=== PATIENT | male | born 1950 | race Caucasian/White ===

== ENCOUNTER 2017-03-06 05:51 | Inpatient (IN) | payer MEDICARE ==
[2017-03-06] MEDS ORDERED: ASPIRIN 81 MG CHEW PO STA (06:08)
[2017-03-06] MEDS ORDERED: NITROGLYCERIN SL TABS 0.4 MG TAB SUBLINGUAL STA ×3 (06:08)
--- NOTE | 2017-03-06 06:11 | ED ---
General Adult HPI - General Chief complaint: Chest Pain Stated complaint: Chest Pain Time Seen by Provider: 03/06/17 06:04 Source: patient, RN notes reviewed Mode of arrival: wheelchair Limitations: no limitations - History of Present Illness Initial comments: Patient is a pleasant 67-year-old male presenting to the emergency department complaining of chest discomfort. Onset of symptoms was around 7:00 last night. Symptoms have worsened since that time. Discomfort did start more in the lower chest/upper abdomen however now is in the left chest behind the breast. No associated dyspnea, nausea, or diaphoresis. No history of similar symptoms previously. Discomfort is currently 8/10. No radiation. Discomfort feels like pressure. - Related Data Home Medications Medication Instructions Recorded Confirmed DULoxetine HCL [Cymbalta] 60 mg PO DAILY 03/06/17 03/06/17 Empagliflozin [Jardiance] 25 mg PO 03/06/17 HYDROcodone/APAP 10-325MG [[place] 1 tab PO Q6H PRN 03/06/17 03/06/17 10-325] Multivit-Min/FA/Lycopen/Lutein 1 each PO 03/06/17 [Centrum Silver Men Tablet] Pravastatin Sodium [Pravachol] 40 mg PO DAILY 03/06/17 03/06/17 glipiZIDE [Glucotrol XL] 10 mg PO 03/06/17 metFORMIN HCL [Glucophage] 500 mg PO BID 03/06/17 03/06/17 Allergies Allergy/AdvReac Type Severity Reaction Status Date / Time No Known Allergies Allergy Verified 03/06/17 05:57 Review of Systems ROS Statement: Those systems with pertinent positive or pertinent negative responses have been documented in the HPI. ROS Other: All systems not noted in ROS Statement are negative. Constitutional: Denies: fever Eyes: Denies: eye pain ENT: Denies: ear pain Respiratory: Denies: cough Cardiovascular: Reports: chest pain Endocrine: Denies: fatigue Gastrointestinal: Denies: abdominal pain Genitourinary: Denies: dysuria Musculoskeletal: Denies: back pain Skin: Denies: rash Neurological: Denies: weakness Past Medical History Past Medical History: Diabetes Mellitus History of Any Multi-Drug Resistant Organisms: None Reported Past Surgical History: Hernia Repair Past Psychological History: No Psychological Hx Reported Smoking Status: Never smoker Past Alcohol Use History: Rare Past Drug Use History: None Reported General Exam Limitations: no limitations General appearance: alert, in no apparent distress Head exam: Present: atraumatic Eye exam: Present: normal appearance, PERRL ENT exam: Present: normal oropharynx Neck exam: Present: normal inspection Respiratory exam: Present: normal lung sounds bilaterally, chest wall tenderness (There is mild tenderness to palpation of the anterior chest wall) Cardiovascular Exam: Present: regular rate, normal rhythm Expanded Peripheral pulses: 2+: Radial (R), Radial (L), Dorsalis Pedis (R), Dorsalis Pedis (L) GI/Abdominal exam: Present: soft. Absent: tenderness Extremities exam: Present: normal inspection. Absent: pedal edema, calf tenderness Neurological exam: Present: alert Psychiatric exam: Present: normal affect, normal mood Skin exam: Present: normal color Course Vital Signs 03/06/17 03/06/17 03/06/17 05:54 06:20 06:29 Temperature 97.8 F Pulse Rate 68 98 97 Respiratory 20 24 22 Rate Blood Pressure 172/80 134/82 112/74 O2 Sat by Pulse 100 98 97 Oximetry 03/06/17 03/06/17 03/06/17 06:35 06:39 06:44 Temperature Pulse Rate 95 103 H 99 Respiratory 22 22 22 Rate Blood Pressure 141/85 153/84 147/83 O2 Sat by Pulse 96 97 97 Oximetry - Reevaluation(s) Reevaluation #1: 03/06/17 06:11 Repeat EKG shows normal sinus rhythm 70. AK 138. QRS 72. QT 404. QTC 436. Left axis. Inferior Q waves with ST elevation. ST depression in lead aVL. 03/06/17 06:13 Cardiology has been paged and STEMI alert was called. 03/06/17 06:17 Case was discussed with Dr. Laguna 03/06/17 06:25 Case was discussed with Dr. Suarez, who will admit his patient. 03/06/17 06:26 Patient reexamined and still not feeling well. Patient will be provided fluid bolus and right-sided EKG ordered. Patient and family were updated on results and plan for cath. 03/06/17 06:32 Right-sided EKG shows normal sinus rhythm 98. AK 166. QRS 82. QT 362. QTC 462. Normal axis. Inferior Q waves with ST elevation. ST depression in aVL and lead 1. Septal Q waves. There is ST elevation in lead V4 concerning for posterior infarct. Nursing instructed to not provide further nitroglycerin at this time. 03/06/17 06:47 Dr. Laguna did evaluate the patient in the emergency department. Patient has gone to the [facility]. EKG Findings - EKG Comments: EKG Findings:: Normal sinus rhythm at 72. AK 174. QRS 80. QT 380. QTC 416. Normal axis. Inferior Q wave with some ST elevation. ST depression in lead aVL. Medical Decision Making - Lab Data Result diagrams: 03/06/17 06:14 Lab Results 03/06/17 Range/Units 06:14 WBC 14.0 H (3.8-10.6) k/uL RBC 5.45 (4.30-5.90) m/uL Hgb 16.5 (13.0-17.5) gm/dL Hct 48.3 (39.0-53.0) % MCV 88.6 (80.0-100.0) fL MCH 30.3 (25.0-35.0) pg MCHC 34.2 (31.0-37.0) g/dL RDW 14.1 (11.5-15.5) % Plt Count 239 (150-450) k/uL - Radiology Data Interpreted by me: Chest x-ray interpreted by myself shows no acute process. Critical Care Time Critical Care Time: Yes Total Critical Care Time: 32 Disposition Clinical Impression: ST elevation myocardial infarction (STEMI) Disposition: ADMITTED IP TO THIS [facility] Condition: Serious Decision Time: 06:48
[2017-03-06] MEDS ORDERED: HEPARIN SODIUM,PORCINE 5,000 UNIT/ML 1 ML VIAL IV PRN (06:20)
[2017-03-06] MEDS ORDERED: HEPARIN SODIUM,PORCINE 5,000 UNIT/ML 1 ML VIAL IV ONE (06:20)
[2017-03-06] MEDS: HEPARIN SODIUM,PORCINE/D5W PMX 25,000 UNIT in DEXTROSE/WATER 1 500ML.BAG IV SCH ×2 (06:24→23:03)
[2017-03-06] MEDS ORDERED: SODIUM CHLORIDE 0.9% 500 ML IV STA ×2 (06:27→06:33)
[2017-03-06] MEDS ORDERED: ATORVASTATIN 80 MG TAB PO STA (06:27)
[2017-03-06 06:33] LABS: CHCM 36.3; HCT 48.3 % (39.0-53.0); HDW 2.82; HGB 16.5 gm/dL (13.0-17.5); MCH 30.3 pg (25.0-35.0); MCHC 34.2 g/dL (31.0-37.0); MCV 88.6 fL (80.0-100.0); Mean Platelet Volume 7.9; RBC 5.45 m/uL (4.30-5.90); RDW 14.1 % (11.5-15.5)
--- NOTE | 2017-03-06 06:43 | XR ---
EXAM: XR Chest, 1 View CLINICAL HISTORY: Reason: chest pain TECHNIQUE: Frontal view of the chest. COMPARISON: No relevant prior studies available. FINDINGS: Lungs: Unremarkable. No consolidation. Pleural space: Unremarkable. No pneumothorax. Heart: Unremarkable. No cardiomegaly. Mediastinum: Unremarkable. Bones/joints: Unremarkable. IMPRESSION: Normal chest x-ray.
[2017-03-06 06:47] LABS: ALT 37 U/L (21-72); AST 29 U/L (17-59); Alkaline Phosphatase 80 U/L (38-126); Anion Gap 16 mmol/L; Blood Urea Nitrogen 15 mg/dL (9-20); Calcium 9.8 mg/dL (8.4-10.2); Carbon Dioxide 22 mmol/L (22-30); Chloride 100 mmol/L (98-107); Glucose 207 mg/dL (74-99); Non-African American GFR(MDRD) >60 (>60 ml/min/1.73 sqM); Potassium 4.1 mmol/L (3.5-5.1); Sodium 138 mmol/L (137-145); Total Bilirubin 0.8 mg/dL (0.2-1.3); Total Protein 8.2 g/dL (6.3-8.2)
[2017-03-06 06:49] LABS: Partial Thromboplastin Time 24.6 sec (22.0-30.0); Prothrombin Time 10.4 sec (9.0-12.0)
[2017-03-06] MEDS ORDERED: IV FLUID CONTINUATION 950 ML IV ONE (06:50)
[2017-03-06] MEDS ORDERED: SODIUM CHLORIDE 0.9% 500 ML IV ONE (06:50)
[2017-03-06] MEDS ORDERED: LIDOCAINE 2% INJ 20 MG/ML (20 ML MDV) ONE (07:01)
[2017-03-06] MEDS ORDERED: fentaNYL (PF) 50 MCG/ML 2 ML AMP ONE (07:01)
[2017-03-06] MEDS ORDERED: VERAPAMIL 2.5 MG/ML 2 ML AMP ONE (07:01)
[2017-03-06] MEDS ORDERED: diphenhydrAMINE 50 MG/ML 1 ML VIAL ONE (07:01)
[2017-03-06] MEDS ORDERED: LIDOCAINE 2% INJ 20 MG/ML SQ ONE ×2 (07:10→07:13)
[2017-03-06] MEDS ORDERED: diphenhydrAMINE 50 MG/ML 1 ML VIAL IVP ONE (07:10)
[2017-03-06] MEDS ORDERED: fentaNYL (PF) 50 MCG/ML 2 ML AMP IV ONE (07:10)
[2017-03-06] MEDS ORDERED: VERAPAMIL SYRINGE (5 MG/10 ML) INTRAARTER ONE (07:11)
[2017-03-06 07:15] LABS: Creatine Kinase MB 3.6 ng/mL (0.0-2.4); Troponin I 0.191 ng/mL (0.000-0.034)
[2017-03-06] MEDS ORDERED: BIVALIRUDIN BOLUS 250 MG/50 ML IV ONE (07:17)
[2017-03-06] MEDS ORDERED: PRASUGREL 10 MG TAB ONE (07:18)
[2017-03-06] MEDS ORDERED: BIVALIRUDIN 250 MG in SODIUM CHLORIDE 0.9% 50 ML IV ONE (07:18)
[2017-03-06] MEDS ORDERED: PRASUGREL 10 MG TAB PO ONE (07:21)
[2017-03-06] MEDS ORDERED: NITROGLYCERIN 1000MCG/10ML SYRINGE INTRACORON ONE (07:23)
[2017-03-06] MEDS ORDERED: IOHEXOL 350 MG/ML 125ML BOTTLE INJ ONE (07:39)
[2017-03-06] MEDS ORDERED: ATROPINE SULFATE 0.1 MG/ML 10ML SYRINGE IV PRN (08:02)
[2017-03-06] MEDS ORDERED: ZOLPIDEM 5 MG TAB PO PRN (08:02)
[2017-03-06] MEDS ORDERED: NITROGLYCERIN SL TABS 0.4 MG TAB SUBLINGUAL PRN (08:02)
[2017-03-06] MEDS ORDERED: RX INFO: IV CONTRAST WAS GIVEN 1 EACH MISC MISCELLANE PRN (08:02)
[2017-03-06] MEDS ORDERED: MAG HYDROX/AL HYDROX/SIMETH 30 ML CUP PO PRN (08:02)
[2017-03-06 08:14] LABS: Glucose,Whole Blood 192 mg/dL (75-99)
[2017-03-06] MEDS ORDERED: SODIUM CHLORIDE 0.9% 1,000 ML IV SCH (08:15)
[2017-03-06 09:42] VITALS: BMI 28.2
[2017-03-06] MEDS ORDERED: glipiZIDE 10 MG TAB PO SCH (10:15)
[2017-03-06] MEDS: DULoxetine HCL 60 MG CAPSULE.DR PO SCH (10:16)
[2017-03-06] MEDS: LISINOPRIL 5 MG TAB PO SCH (10:16)
[2017-03-06] MEDS: METOPROLOL TARTRATE 25 MG TAB PO SCH ×2 (10:16→21:41)
[2017-03-06 12:40] LABS: Glucose,Whole Blood 117 mg/dL (75-99)
[2017-03-06] MEDS: INSULIN LISPRO (humaLOG) 300 UNIT/3 ML VIAL SQ SCH ×4 (13:42→23:45)
[2017-03-06 14:17] LABS: Hemoglobin A1C 6.7 % (4.2-6.1)
--- NOTE | 2017-03-06 14:17 | ECHOF ---
Referral Reason:mi MEASUREMENTS -------- HEIGHT: 175.3 cm WEIGHT: 90.7 kg BP: 147/83 IVSd: 1.4 cm (0.6 - 1.1) LVIDd: 3.2 cm (3.9 - 5.3) LVPWd: 1.1 cm (0.6 - 1.1) IVSs: 1.5 cm LVIDs: 1.7 cm LVPWs: 1.5 cm Ao Diam: 3.5 cm (2.0 - 3.7) AV Cusp: 2.0 cm (1.5 - 2.6) LA Diam: 3.1 cm (2.7 - 3.8) MV EXCURSION: 12.148 mm (> 18.000) MV EF SLOPE: 93 mm/s (70 - 150) EPSS: 0.6 cm MV E [place]: 0.86 m/s MV DecT: 209 ms MV A [place]: 0.71 m/s MV E/A Ratio: 1.21 RAP: 5.00 mmHg RVSP: 8.53 mmHg FINDINGS -------- Sinus rhythm. This was a technically difficult study with suboptimal views. There is mild concentric left ventricular hypertrophy. Overall left ventricular systolic function is mild-moderately impaired with, an EF between 40 - 45 %. Inferior Hypokinesis The right ventricle is normal in size and function. The left atrium is normal in size. The right atrium is normal in size. 1.5mg of Definity was utilized for enhancement of images Aortic valve is trileaflet and is mildly thickened. The mitral valve leaflets are mildly thickened. There is trace mitral regurgitation. Trace tricuspid regurgitation present. The right ventricular systolic pressure, as measured by Doppler, is 8.53mmHg. Pulmonic valve appears structurally normal. The aortic root size is normal. The pericardium is normal. CONCLUSIONS -------- 1. Sinus rhythm. 2. Aortic valve is trileaflet and is mildly thickened. 3. The mitral valve leaflets are mildly thickened. 4. There is trace mitral regurgitation. 5. Trace tricuspid regurgitation present. 6. The right ventricular systolic pressure, as measured by Doppler, is 8.53mmHg. 7. Pulmonic valve appears structurally normal. 8. The aortic root size is normal. 9. The pericardium is normal. 10. This was a technically difficult study with suboptimal views. 11. There is mild concentric left ventricular hypertrophy. 12. Overall left ventricular systolic function is mild-moderately impaired with, an EF between 40 - 45 %. 13. Inferior Hypokinesis 14. The right ventricle is normal in size and function. 15. The left atrium is normal in size. 16. The right atrium is normal in size. 17. 1.5mg of Definity was utilized for enhancement of images CIRCULATING PROCESS INSPECTOR: Elizabeth Isabel RDCS
--- NOTE | 2017-03-06 15:12 | CONS ---
Mr. Maravilla is a 67-year-old male with history of diabetes mellitus, who presented with symptoms of chest discomfort. The discomfort started yesterday at around 7:00 p.m. and persisted. He felt that his discomfort was initially GI in origin but because it persisted he came into the emergency room and subsequently his EKG showed evidence of inferior wall myocardial infarction. Patient denies any prior similar symptoms. He is usually average in his exercise tolerance and has no exertional chest pain or dyspnea on exertion. He denies any dizziness, palpitations, or syncope. He denies any PND, orthopnea or peripheral edema. He has no prior cardiac history. His coronary risk factors are positive for diabetes and hyperlipidemia. He is nonhypertensive and nonsmoker. His medications include pravastatin 40 mg daily, glipizide 10 mg daily, Jiardiance 25 mg daily, metformin 500 mg twice a day, duloxetine, Centrum Silver and [place] on a p.r.n. basis. REVIEW OF SYMPTOMS: RESPIRATORY: He has no recent history of documented asthma or emphysema. GI SYSTEM: No GI bleed. No peptic ulcer disease. SYSTEM: No dysuria or hematuria. NERVOUS SYSTEM: No history of stroke or seizure. PHYSICAL EXAMINATION: He is a 67-year-old male alert, oriented in no apparent distress. Heart rate in the 90s, blood pressure 120/70. HEAD: Normocephalic. EYES: Sclerae anicteric. NECK: Good upstroke. No bruit, no jugular venous distention. CHEST: Clear to auscultation. HEART: Regular rate and rhythm. S1, S2. No S3 with systolic murmur at the bases. No diastolic murmur, no rub. ABDOMEN: Soft, nontender. Positive bowel sounds. No organomegaly. EXTREMITIES: No edema. Intact pulses. EKG reveals sinus mechanism with normal axis, normal intervals with ST elevation involving the II, III and aVL with QRS pattern and ST depression in the I and aVL. IMPRESSION: 1. Acute inferior myocardial infarction. Patients pain started about 12 hours ago. 2. History of diabetes. 3. Hyperlipidemia. RECOMMENDATIONS: I recommend with proceeding with emergent cardiac catheterization. The rationale behind the procedure as well as the risks and complications were discussed with the patient who is in full understanding and agreement. Thank you for this consult. Will follow with you. MILLI
--- NOTE | 2017-03-06 17:35 | P.HPIM ---
History of Present Illness H&P Date: 03/06/17 Chief Complaint: chest pain This is a 67 y/o male well known to the practice who began having chest pain about 6pm, day before admission. It started with abdominal pain and slowly increased in severity and moved up his chest. When he got to his heart level, he came emergency room. He was found to have a STEMI. Cardiology had seen him and Dr. Laguna took him for cardiac catheterization with stenting. He was diagnosed with acute inferior myocardial infarction. Patient is now resting comfortably in the intensive care unit. He is pain- free. He denies any shortness of breath, nausea, vomiting, abdominal pain, diarrhea. Review of Systems All systems: negative Past Medical History Past Medical History: Diabetes Mellitus History of Any Multi-Drug Resistant Organisms: None Reported Past Surgical History: Hernia Repair Past Anesthesia/Blood Transfusion Reactions: No Reported Reaction Past Psychological History: No Psychological Hx Reported Smoking Status: Never smoker Past Alcohol Use History: Rare Past Drug Use History: None Reported Medications and Allergies Home Medications Medication Instructions Recorded Confirmed Type DULoxetine HCL [Cymbalta] 60 mg PO BID 03/06/17 03/06/17 History Empagliflozin [Jardiance] 25 mg PO DAILY 03/06/17 03/06/17 History HYDROcodone/APAP 10-325MG [[place] 1 tab PO Q6H PRN 03/06/17 03/06/17 History 10-325] Multivit-Min/FA/Lycopen/Lutein 1 tab PO DAILY 03/06/17 03/06/17 History [Centrum Silver Men Tablet] Pravastatin Sodium [Pravachol] 40 mg PO HS 03/06/17 03/06/17 History glipiZIDE [Glucotrol] 10 mg PO BID 03/06/17 03/06/17 History metFORMIN HCL [Glucophage] 500 mg PO BID 03/06/17 03/06/17 History Allergies Allergy/AdvReac Type Severity Reaction Status Date / Time No Known Allergies Allergy Verified 03/06/17 10:47 Physical Exam Vitals: Vital Signs Temp Pulse Resp BP BP Pulse Ox 03/06/17 16:50 97.9 F 65 20 117/66 96 03/06/17 16:40 61 16 117/66 97 03/06/17 16:30 65 18 117/66 96 03/06/17 16:20 64 13 117/66 96 03/06/17 16:10 82 21 117/66 96 03/06/17 16:00 68 19 117/66 96 03/06/17 15:20 65 18 127/65 96 03/06/17 15:10 62 19 127/65 95 03/06/17 15:00 90 50 H 113/72 96 03/06/17 14:50 73 12 113/72 95 03/06/17 14:40 66 9 L 113/72 97 03/06/17 14:30 77 98 H 113/72 96 03/06/17 14:20 80 17 113/72 95 03/06/17 14:10 71 21 113/72 95 03/06/17 14:00 65 15 113/72 96 03/06/17 13:50 72 20 122/74 96 03/06/17 13:40 64 15 122/74 96 03/06/17 13:30 64 16 122/74 96 03/06/17 13:20 81 24 122/74 97 03/06/17 13:10 74 18 122/74 96 03/06/17 13:00 77 20 122/74 95 03/06/17 12:50 69 14 113/77 97 03/06/17 12:40 66 12 113/77 96 03/06/17 12:30 65 11 L 113/77 97 03/06/17 12:20 67 15 113/77 95 03/06/17 12:10 88 12 113/77 96 03/06/17 12:00 88 18 132/78 95 03/06/17 11:50 70 17 132/78 95 03/06/17 11:40 67 12 132/78 95 03/06/17 11:30 78 14 132/78 96 03/06/17 11:20 97.9 F 77 15 132/78 96 03/06/17 11:10 77 18 132/78 97 03/06/17 11:00 106 H 20 132/78 96 03/06/17 10:50 74 21 132/73 97 03/06/17 10:40 98.1 F 93 18 132/73 95 03/06/17 10:30 74 18 132/73 95 03/06/17 10:20 82 123/79 98 03/06/17 10:10 69 123/79 97 03/06/17 10:00 101 H 123/79 99 03/06/17 09:50 77 109/75 99 03/06/17 09:47 18 03/06/17 09:40 78 109/75 99 03/06/17 09:30 73 109/75 99 03/06/17 09:20 70 112/65 99 03/06/17 09:17 18 03/06/17 09:10 101 H 112/65 98 03/06/17 09:00 73 128/71 99 03/06/17 08:50 76 128/71 100 03/06/17 08:47 97.9 F 112/65 97 03/06/17 08:40 69 141/73 100 03/06/17 08:32 16 128/71 97 03/06/17 08:30 69 139/70 03/06/17 08:20 72 139/70 100 03/06/17 08:17 16 141/73 98 03/06/17 08:11 96 03/06/17 08:02 16 139/70 98 03/06/17 06:47 97.7 F 16 139/70 99 03/06/17 06:44 99 22 147/83 97 03/06/17 06:39 103 H 22 153/84 97 03/06/17 06:35 95 22 141/85 96 03/06/17 06:29 97 22 112/74 97 03/06/17 06:20 98 24 134/82 98 03/06/17 05:54 97.8 F 68 20 172/80 100 Intake and Output 03/06/17 03/06/17 03/06/17 06:59 14:59 22:59 Intake Total 175 1176.8 300 Output Total 1100 925 Balance 175 76.8 -625 Intake: IV 175 26.8 Intake, IV Titration 600 300 Amount Sodium Chloride 0.9% 1, 600 300 000 ml @ 100 mls/hr IV . Q10H [facility] Rx#:[id number] Oral 550 Output: Urine 1100 925 Other: Weight 86.8 kg GENERAL: Well-appearing, well-nourished and in no acute distress. HEAD: Atraumatic, normocephalic. EYES: Pupils equal round and reactive to light, extraocular movements intact, sclera anicteric, conjunctiva are normal. ENT:nares patent, oropharynx clear without exudates. Moist mucous membranes. NECK: Normal range of motion, supple without lymphadenopathy or JVD, no thyromegaly LUNGS: Breath sounds clear to auscultation bilaterally and equal. No wheezes rales or rhonchi. HEART: Regular rate and rhythm without murmurs, rubs or gallops.S1S2 Normal ABDOMEN: Soft, nontender, normoactive bowel sounds. No guarding, no rebound. No masses appreciated. EXTREMITIES: Normal range of motion, no pitting or edema. No clubbing or cyanosis. NEUROLOGICAL: Cranial nerves II through XII grossly intact. Normal speech, normal gait. PSYCH: Normal mood, normal affect. SKIN: Warm, Dry, normal turgor, no rashes or lesions noted. Results CBC & Chem 7: 03/06/17 06:14 03/06/17 06:14 Labs: Abnormal Lab Results - Last 24 Hours (Table) 03/06/17 03/06/17 03/06/17 Range/Units 06:14 06:14 06:14 WBC 14.0 H (3.8-10.6) k/uL Glucose 207 H (74-99) mg/dL POC Glucose (mg/dL) (75-99) mg/dL Hemoglobin A1c (4.2-6.1) % CK-MB (CK-2) 3.6 H* (0.0-2.4) ng/mL Troponin I 0.191 H* (0.000-0.034) ng/mL 03/06/17 03/06/17 03/06/17 Range/Units 08:12 12:34 12:34 WBC (3.8-10.6) k/uL Glucose (74-99) mg/dL POC Glucose (mg/dL) 192 H (75-99) mg/dL Hemoglobin A1c 6.7 H (4.2-6.1) % CK-MB (CK-2) (0.0-2.4) ng/mL Troponin I 14.600 H* (0.000-0.034) ng/mL 03/06/17 Range/Units 12:39 WBC (3.8-10.6) k/uL Glucose (74-99) mg/dL POC Glucose (mg/dL) 117 H (75-99) mg/dL Hemoglobin A1c (4.2-6.1) % CK-MB (CK-2) (0.0-2.4) ng/mL Troponin I (0.000-0.034) ng/mL Chest x-ray: report reviewed Thrombosis Risk Factor Assmnt - DVT/VTE Prophylaxis DVT/VTE Prophylaxis: Pharmacologic Prophylaxis ordered - Choose All That Apply Each Factor Represents 1 point: Acute [place] Other Risk Factors: Yes Each Risk Factor Represents 2 Points: Age 61-74 years Other congenital or acquired thrombophilia - If yes, enter type in comment: No Thrombosis Risk Factor Assessment Total Risk Factor Score: 3 Thrombosis Risk Factor Assessment Level: Moderate Risk Assessment and Plan Plan: UTI inferior myocardial infarction, status post cardiac catheterization with stenting: Dr. nery dye's operative report is pending indicating which vessels had stents. Patient is resting comfortably now. Currently on metoprolol, senna pro-, atorvastatin, Effient,aspirin, and nitroglycerin when necessary. He remains in intensive care unit Type 2 diabetes: We will hold his oral medications of metformin due to the IV contrast, chart aunts as is not on formulary, and glipizide due to the side effects of possible hypoglycemia. Hyperlipidemia: His pravastatin to discontinue and favor of atorvastatin. We will plan on a prescription for this discharge. Depression: He can continue his duloxetine. I'll await further recommendations from cardiology. I'll reevaluate him in next 24 hours.
[2017-03-06 18:00] LABS: Glucose,Whole Blood 166 mg/dL (75-99)
[2017-03-06 21:40] LABS: Glucose,Whole Blood 181 mg/dL (75-99)
[2017-03-06] MEDS: ATORVASTATIN 80 MG TAB PO SCH (21:41)
--- NOTE | 2017-03-06 22:12 | PTCA ---
Mr. Maravilla is a 67-year-old male with history of diabetes and hyperlipidemia who presented with an acute inferior wall myocardial infarction. Underwent cardiac catheterization, was found to have subtotally occluded proximal right coronary artery. In view of that, recommendation was made regarding angioplasty and stenting. The procedure as well as risks and complications were discussed with the patient who is in full understanding and agreement. PROCEDURE: Using a 6 [place] FR 3.5 guiding catheter, images of the right coronary artery were performed. Following that, 0.014 balanced medium weight J wire was advanced across the lesion and positioned distally. Then a 2.5 x 15 mm Trek balloon was advanced. On inflation at 8 atmospheres was done. Following that, the balloon was removed and a 3.0 x 18 mm Xience Alpine stent was deployed. It was dilated at 16 atmospheres. After the last inflation, after appropriate wait, the balloon and the guidewire were withdrawn back in the guiding catheter. Images were obtained, repeated. Those images revealed stable successful stenting. At that point, the guiding catheter, the balloon and the guidewire were removed and images of the left coronary system as well as left ventriculogram was performed. Following that, catheter and sheath were removed. Hemostasis was obtained with deployment of a TR band. There were no immediate complications. The patient was returned to his room in stable condition. Of note, the patient had minimal chest discomfort at the end of the procedure with improvement in EKG changes. He received loading dose of Effient as well as intravenous Angiomax per protocol. RESULTS: Successful stenting of the proximal right coronary artery with reduction of stenosis from 99% to 0%. RECOMMENDATIONS: The patient will be continued on aspirin, Effient, beta fay, anny inhibitors, statins. The importance of dual antiplatelet treatment was discussed with the patient and his family and they are in full understanding and agreement. Duration of procedure: 34 minutes. MILLI
--- NOTE | 2017-03-06 22:15 | MISC ---
Dear Dr. Suarez: I had the pleasure of performing cardiac catheterization and coronary angiography and stenting on Mr. Maravilla at [facility] on the february and a full copy of procedure note will be forwarded to you. In brief, he was found to have subtotally occluded proximal right coronary artery and underwent successful stenting of that vessel. At the same time, he was found to have a chronically occluded third obtuse marginal branch. At this time, I would recommend to continue dual antiplatelet treatment with aggressive coronary risk modifications. Depending on his progress, further recommendations will be made. Thank you again for allowing me to participate in this patients care. Please feel free to call for any questions. Sincerely yours, MILLI
[2017-03-07 04:49] LABS: Basophils # (A) 0.1 k/uL (0-0.2); Basophils % (A) 1 %; CHCM 35.4; Eosinophils # (A) 0.3 k/uL (0-0.7); Eosinophils % (A) 2 %; HCT 43.9 % (39.0-53.0); HDW 2.82; HGB 15.6 gm/dL (13.0-17.5); Luc # (Auto) 0.22; Luc % (Auto) 2; Lymphocytes # (A) 3.1 k/uL (1.0-4.8); Lymphocytes % (A) 24 %; MCH 31.3 pg (25.0-35.0); MCHC 35.6 g/dL (31.0-37.0); MCV 87.9 fL (80.0-100.0); Mean Platelet Volume 7.5; Monocytes # (A) 0.8 k/uL (0-1.0); Monocytes % (A) 6 %; Neutrophils # (A) 8.3 k/uL (1.3-7.7); Neutrophils % (A) 65 %; WBC 12.6 k/uL (3.8-10.6); WBC (Perox) 13.06
[2017-03-07 05:08] LABS: Anion Gap 11 mmol/L; Blood Urea Nitrogen 15 mg/dL (9-20); Calcium 9.4 mg/dL (8.4-10.2); Carbon Dioxide 23 mmol/L (22-30); Chloride 105 mmol/L (98-107); Cholesterol 131 mg/dL (<200); Glucose 144 mg/dL (74-99); HDL Cholesterol 41 mg/dL (40-60); Magnesium 1.7 mg/dL (1.6-2.3); Non-African American GFR(MDRD) >60 (>60 ml/min/1.73 sqM); Potassium 4.1 mmol/L (3.5-5.1); Sodium 139 mmol/L (137-145)
[2017-03-07] MEDS ORDERED: Magnesium Replacement Protocol 1 EACH MISC MISCELLANE PRN (05:32)
[2017-03-07] MEDS: MAGNESIUM SULFATE-D5W PMX 1 GM in DEXTROSE/WATER 1 100ML.BAG IVPB SCH ×2 (06:49→07:52)
[2017-03-07 08:15] LABS: Glucose,Whole Blood 172 mg/dL (75-99)
[2017-03-07] MEDS: ASPIRIN 81 MG CHEW PO SCH (08:17)
[2017-03-07] MEDS: PRASUGREL 10 MG TAB PO SCH (08:17)
[2017-03-07] MEDS: METOPROLOL TARTRATE 25 MG TAB PO SCH ×2 (08:17→20:01)
[2017-03-07] MEDS: LISINOPRIL 5 MG TAB PO SCH (08:17)
[2017-03-07] MEDS: DULoxetine HCL 60 MG CAPSULE.DR PO SCH (08:18)
[2017-03-07] MEDS: INSULIN LISPRO (humaLOG) 300 UNIT/3 ML VIAL SQ SCH ×4 (08:36→21:30)
--- NOTE | 2017-03-07 08:36 | P.PN ---
Subjective This is a 67 y/o male well known to the practice who began having chest pain about 6pm, day before admission. It started with abdominal pain and slowly increased in severity and moved up his chest. When he got to his heart level, he came emergency room. He was found to have a STEMI. Cardiology had seen him and Dr. Laguna took him for cardiac catheterization with stenting. He was diagnosed with acute inferior myocardial infarction. Patient is now resting comfortably in the intensive care unit. He is pain- free. He denies any shortness of breath, nausea, vomiting, abdominal pain, diarrhea. 03/07/2017: Overnight, he is remained stable. He is complaining of not sleeping well. He denies any chest pains, pressures, shortness of breath, nausea, vomiting, or GI upset. He feels well. Radiology performed an RCA stent. Objective - Vital Signs Vital signs: Vital Signs Temp 97.8 F 03/07/17 04:00 Pulse 72 03/07/17 08:00 Resp 16 03/07/17 08:00 BP 108/69 03/07/17 08:00 Pulse Ox 95 03/07/17 08:00 Intake & Output 03/06/17 03/07/17 03/07/17 18:59 06:59 18:59 Intake Total 1716.8 600 220 Output Total 2024 1999 Balance -308.2 -1400 220 Weight 86.4 kg 88.6 kg Intake: IV 26.8 100 100 Magnesium Sulfate-D5w Pmx 100 100 1 gm In Dextrose/Water 1 100ml.bag @ 100 mls/hr IVPB Q1H [facility] Rx#: [id number] Intake, IV Titration 900 Amount Sodium Chloride 0.9% 1, 900 000 ml @ 100 mls/hr IV . Q10H [facility] Rx#:[id number] Oral 790 500 120 Output: Urine 2024 1999 Other: Voiding Method Toilet Urinal # Voids 1 # Bowel Movements 1 - Exam GENERAL: Well-appearing, well-nourished and in no acute distress. NECK: Normal range of motion, supple without lymphadenopathy or JVD, no thyromegaly LUNGS: Breath sounds clear to auscultation bilaterally and equal. No wheezes rales or rhonchi. HEART: Regular rate and rhythm without murmurs, rubs or gallops.S1S2 Normal ABDOMEN: Soft, nontender, normoactive bowel sounds. No guarding, no rebound. No masses appreciated. EXTREMITIES: Normal range of motion, no pitting or edema. No clubbing or cyanosis. NEUROLOGICAL: Cranial nerves II through XII grossly intact. Normal speech, normal gait. PSYCH: Normal mood, normal affect. SKIN: Warm, Dry, normal turgor, no rashes or lesions noted. - Labs CBC & Chem 7: 03/07/17 04:05 03/07/17 04:05 Labs: Abnormal Lab Results - Last 24 Hours (Table) 03/06/17 03/06/17 03/06/17 Range/Units 12:34 12:34 12:39 WBC (3.8-10.6) k/uL Neutrophils # (1.3-7.7) k/uL Glucose (74-99) mg/dL POC Glucose (mg/dL) 117 H (75-99) mg/dL Hemoglobin A1c 6.7 H (4.2-6.1) % Troponin I 14.600 H* (0.000-0.034) ng/mL Triglycerides (<150) mg/dL 03/06/17 03/06/17 03/06/17 Range/Units 17:58 18:17 21:37 WBC (3.8-10.6) k/uL Neutrophils # (1.3-7.7) k/uL Glucose (74-99) mg/dL POC Glucose (mg/dL) 166 H 181 H (75-99) mg/dL Hemoglobin A1c (4.2-6.1) % Troponin I 21.800 H* (0.000-0.034) ng/mL Triglycerides (<150) mg/dL 03/07/17 03/07/17 03/07/17 Range/Units 04:05 04:05 08:12 WBC 12.6 H (3.8-10.6) k/uL Neutrophils # 8.3 H (1.3-7.7) k/uL Glucose 144 H (74-99) mg/dL POC Glucose (mg/dL) 172 H (75-99) mg/dL Hemoglobin A1c (4.2-6.1) % Troponin I (0.000-0.034) ng/mL Triglycerides 162 H (<150) mg/dL Assessment and Plan Plan: UTI inferior myocardial infarction, status post cardiac catheterization with stenting of the RCA: Patient is resting comfortably now. Currently on metoprolol, senna pro-, atorvastatin, Effient,aspirin, and nitroglycerin when necessary. He remains in intensive care unit. He could go to the floor if a bed is available and stepdown. Type 2 diabetes: Continue to hold his oral medications of metformin due to the IV contrast, Jardiance is not on formulary, and glipizide due to the side effects of possible hypoglycemia. Hyperlipidemia: pravastatin changed to atorvastatin. We will plan on a prescription for this discharge. Depression: He can continue his duloxetine. I'll await further recommendations from cardiology. He'll be reevaluated next 24 hours
--- NOTE | 2017-03-07 10:37 | CC ---
Mr. Maravilla is a 67 year old male with known history of diabetes, hyperlipidemia who presented with symptoms of chest discomfort that started about 11 hours prior to presentation to the emergency room. In the emergency room, he was noted to have evidence of acute inferior wall myocardial infarction. In view of that, recommendation was made regarding cardiac catheterization. The procedure as well as risks and complications were discussed with the patient who is in full understanding and agreement. PROCEDURE: The patient was brought to the flue dust laborer in a fasting semi-sedated state. After he received Fentanyl and Benadryl, and after achieving moderate conscious sedated state, using Xylocaine anesthesia and Seldinger technique, a 6 [place] sheath was introduced into the right radial artery. Selective right and left coronary angiography was performed using 6 [place] 3.5 FR guiding catheter. After performing angioplasty of the right coronary artery, images of the left coronary system was performed using a 5 [place] 3.5 bend left Tara catheter. Multiple views of the coronary arteries including hemiaxial views were obtained. Following that, a 5 [place] tight pigtail catheter was introduced into the left ventricle and a 30 degree GREENE view of the left ventricle was obtained. Following that, catheter and sheath were removed. Hemostasis was obtained with deployment of a TR band. There were no immediate complications. The patient was returned to his room in stable condition. Of note, the patient received Angiomax per protocol as well as oral loading dose of Effient. He also received intraarterial Verapamil. FINDINGS: LEFT MAIN: This is a large size vessel bifurcating into left circumflex, left anterior descending artery. Left main coronary artery is without any obstructive coronary artery disease. LEFT ANTERIOR DESCENDING ARTERY: This is a large size vessel reaching towards the apex with a wrap around the apex segment giving rise to two diagonal branches. The first one is large in caliber. The takeoff of the first diagonal branch which is a very proximal vessel has 40% plaque. The LAD proximally has 30% plaque. The rest of the vessel has no high grade stenosis. LEFT CIRCUMFLEX: This is a non-dominant vessel, giving rise to three obtuse marginal branches. The proximal left circumflex has intimal disease with an area of stenosis of 50%. The third obtuse marginal branch is totally occluded with retrograde flow. The origin of that vessel is not well visualized. RIGHT CORONARY ARTERY: This vessel is subtotally occluded proximally with 99% distal stenosis and very slow flow into the distal vessel. LEFT VENTRICULOGRAM: Left ventriculogram was performed in 30 degree GREENE view and revealed inferobasal and mid inferior wall hypokinesia. Ejection fraction was 45%. There was no significant mitral regurgitation. HEMODYNAMICS: There was no gradient across the aortic valve. The left ventricular end diastolic pressure was 14 to 16 mmHg. CONCLUSION: 1. Subtotally occluded proximal right coronary artery. 2. Chronically occluded third obtuse marginal branch. 3. Mild to moderate disease in the LAD and the first diagonal branch. 4. Mildly impaired left ventricular systolic function. RECOMMENDATIONS: In view of the findings and anatomy, I have recommended proceeding with angioplasty and stenting of the right coronary artery. The procedure as well as risks and complications were discussed with the patient who is in full understanding and agreement. MILLI
--- NOTE | 2017-03-07 12:10 | P.PN ---
Subjective Patient is doing well. He denies any chest discomfort no dizziness no shortness of breath he is lying comfortably in bed and he underwent stenting to the proximal RCA which was subtotally occluded. He does have a chronically occluded OM 3 and mild to moderate disease in the LAD as well as the first diagonal branch and a mildly impaired left frontal systolic function On examination his blood pressure is 109/70 mmHg respirations are normal pulse rate is in the 70s and 80s, he is afebrile pulse ox 96 Breath sounds are normal no rhonchi no crackles Extremities are warm no edema Abdomen is soft nontender Normal heart sounds no murmurs no gallops Impression Acute inferior wall MS status post coronary stenting primarily Mild ischemic cardio myopathy Chronically occluded left circumflex Adult-onset diabetes on treatment Patient was on Pravachol 40 mg by mouth daily prior to admission Suggest Dual antiplatelet therapy Lisinopril Beta blockers Atorvastatin 80 mg by mouth daily Transferred to telemetry Continue observation on telemetry, patient may ambulate in the hallways Objective - Vital Signs Vital signs: Vital Signs Temp 98.1 F 03/07/17 08:00 Pulse 84 03/07/17 10:00 Resp 22 03/07/17 10:00 BP 109/70 03/07/17 10:00 Pulse Ox 92 L 03/07/17 10:00 Intake & Output 03/06/17 03/07/17 03/07/17 18:59 06:59 18:59 Intake Total 1716.8 600 220 Output Total 2024 1999 Balance -308.2 -1400 220 Weight 86.4 kg 88.6 kg Intake: IV 26.8 100 100 Magnesium Sulfate-D5w Pmx 100 100 1 gm In Dextrose/Water 1 100ml.bag @ 100 mls/hr IVPB Q1H [facility] Rx#: [id number] Intake, IV Titration 900 Amount Sodium Chloride 0.9% 1, 900 000 ml @ 100 mls/hr IV . Q10H [facility] Rx#:[id number] Oral 790 500 120 Output: Urine 2024 1999 Other: Voiding Method Toilet Urinal # Voids 1 # Bowel Movements 1 - Labs CBC & Chem 7: 03/07/17 04:05 03/07/17 04:05 Labs: Abnormal Lab Results - Last 24 Hours (Table) 03/06/17 03/06/17 03/06/17 Range/Units 12:34 12:34 12:39 WBC (3.8-10.6) k/uL Neutrophils # (1.3-7.7) k/uL Glucose (74-99) mg/dL POC Glucose (mg/dL) 117 H (75-99) mg/dL Hemoglobin A1c 6.7 H (4.2-6.1) % Troponin I 14.600 H* (0.000-0.034) ng/mL Triglycerides (<150) mg/dL 03/06/17 03/06/17 03/06/17 Range/Units 17:58 18:17 21:37 WBC (3.8-10.6) k/uL Neutrophils # (1.3-7.7) k/uL Glucose (74-99) mg/dL POC Glucose (mg/dL) 166 H 181 H (75-99) mg/dL Hemoglobin A1c (4.2-6.1) % Troponin I 21.800 H* (0.000-0.034) ng/mL Triglycerides (<150) mg/dL 03/07/17 03/07/17 03/07/17 Range/Units 04:05 04:05 04:05 WBC 12.6 H (3.8-10.6) k/uL Neutrophils # 8.3 H (1.3-7.7) k/uL Glucose 144 H (74-99) mg/dL POC Glucose (mg/dL) (75-99) mg/dL Hemoglobin A1c (4.2-6.1) % Troponin I 12.300 H* (0.000-0.034) ng/mL Triglycerides 162 H (<150) mg/dL 03/07/17 Range/Units 08:12 WBC (3.8-10.6) k/uL Neutrophils # (1.3-7.7) k/uL Glucose (74-99) mg/dL POC Glucose (mg/dL) 172 H (75-99) mg/dL Hemoglobin A1c (4.2-6.1) % Troponin I (0.000-0.034) ng/mL Triglycerides (<150) mg/dL
[2017-03-07 12:25] LABS: Glucose,Whole Blood 165 mg/dL (75-99)
[2017-03-07 17:39] LABS: Glucose,Whole Blood 144 mg/dL (75-99)
[2017-03-07 18:34] VITALS: RESP 16
[2017-03-07] MEDS: ATORVASTATIN 80 MG TAB PO SCH (20:01)
[2017-03-07 21:26] LABS: Glucose,Whole Blood 210 mg/dL (75-99)
[2017-03-08 02:21] LABS: Glucose,Whole Blood 134 mg/dL (75-99)
[2017-03-08] MEDS: INSULIN LISPRO (humaLOG) 300 UNIT/3 ML VIAL SQ SCH ×4 (02:29→18:30)
[2017-03-08] MEDS: HEPARIN SODIUM,PORCINE/D5W PMX 25,000 UNIT in DEXTROSE/WATER 1 500ML.BAG IV SCH (02:30)
[2017-03-08 03:30] VITALS: TEMP 97.8
[2017-03-08 06:10] LABS: Glucose,Whole Blood 141 mg/dL (75-99)
[2017-03-08 07:02] LABS: Basophils # (A) 0.1 k/uL (0-0.2); Basophils % (A) 1 %; CH 30.7; CHCM 35.4; Eosinophils # (A) 0.3 k/uL (0-0.7); Eosinophils % (A) 2 %; HCT 42.9 % (39.0-53.0); HDW 2.86; HGB 14.9 gm/dL (13.0-17.5); Luc % (Auto) 3; Lymphocytes # (A) 3.2 k/uL (1.0-4.8); Lymphocytes % (A) 26 %; MCH 30.2 pg (25.0-35.0); MCHC 34.7 g/dL (31.0-37.0); MCV 87.1 fL (80.0-100.0); Mean Platelet Volume 7.6; Monocytes # (A) 0.7 k/uL (0-1.0); Monocytes % (A) 6 %; Neutrophils # (A) 7.5 k/uL (1.3-7.7); Neutrophils % (A) 63 %; RBC 4.93 m/uL (4.30-5.90); WBC (Perox) 12.43
[2017-03-08] MEDS: DULoxetine HCL 60 MG CAPSULE.DR PO SCH (09:19)
[2017-03-08] MEDS: PRASUGREL 10 MG TAB PO SCH (09:19)
[2017-03-08] MEDS: ASPIRIN 81 MG CHEW PO SCH (09:19)
[2017-03-08] MEDS: LISINOPRIL 5 MG TAB PO SCH (09:19)
[2017-03-08] MEDS: METOPROLOL TARTRATE 25 MG TAB PO SCH ×2 (09:19→18:34)
[2017-03-08 11:41] LABS: Glucose,Whole Blood 209 mg/dL (75-99)
--- NOTE | 2017-03-08 12:01 | P.PN ---
Subjective Principal diagnosis: STEMI This is a 63-year-old gentleman with history of diabetes, hyperlipidemia, who presented to the hospital with a non-ST elevation myocardial infarction, inferior. He was taken to the cardiac catheterization lab by Dr. Laguna where he underwent angioplasty and stenting of the right coronary artery. Patient was seen and examined this morning, denied any chest pain or difficulty in breathing. He has been up ambulating without any difficulty. No arrhythmias noted on the monitor. Objective - Vital Signs Vital signs: Vital Signs Temp 97.8 F 03/08/17 03:29 Pulse 95 03/08/17 09:05 Resp 16 03/08/17 08:00 BP 117/65 03/08/17 09:05 Pulse Ox 97 03/08/17 09:05 Intake & Output 03/07/17 03/08/17 03/08/17 18:59 06:59 18:59 Intake Total 960 0 Output Total 400 Balance 560 0 Weight 88.6 kg Intake: IV 100 Magnesium Sulfate-D5w Pmx 100 1 gm In Dextrose/Water 1 100ml.bag @ 100 mls/hr IVPB Q1H [facility] Rx#: [id number] Intake, IV Titration 0 Amount Sodium Chloride 0.9% 500 0 ml As IV .STK-MED ONE Rx# :[id number] Oral 860 Output: Urine 400 Other: Voiding Method Toilet Toilet Urinal # Voids 1 - Exam PHYSICAL EXAMINATION: HEENT: Head is atraumatic, normocephalic. Pupils equal, round. Neck is supple. There is no elevated jugular venous pressure. HEART EXAMINATION: Heart S1, S2 normal. No murmur or gallop heard. CHEST EXAMINATION: Lungs are clear to auscultation and precussion. No chest wall tenderness is noted on palpation or with deep breathing. ABDOMEN: Soft, nontender. Bowel sounds are heard. No organomegaly noted. EXTREMITIES: 2+ peripheral pulses with no evidence of peripheral edema and no calf tenderness noted. NEUROLOGIC patient is awake, alert and oriented -3. . - Labs CBC & Chem 7: 03/08/17 06:06 03/07/17 04:05 Labs: Abnormal Lab Results - Last 24 Hours (Table) 03/07/17 03/07/17 03/07/17 Range/Units 12:24 17:36 21:22 WBC (3.8-10.6) k/uL POC Glucose (mg/dL) 165 H 144 H 210 H (75-99) mg/dL 03/08/17 03/08/17 03/08/17 Range/Units 02:19 06:02 06:06 WBC 12.0 H (3.8-10.6) k/uL POC Glucose (mg/dL) 134 H 141 H (75-99) mg/dL 03/08/17 Range/Units 11:39 WBC (3.8-10.6) k/uL POC Glucose (mg/dL) 209 H (75-99) mg/dL Assessment and Plan (1) ST elevation (STEMI) myocardial infarction involving right coronary artery Status: Acute (2) S/P right coronary artery (RCA) stent placement Status: Acute (3) HTN (hypertension) Status: Acute (4) Hyperlipemia Status: Acute (5) ST elevation myocardial infarction (STEMI) Status: Acute Plan: From cardiology's perspective, patient may be able to be discharged home today. We will make him a follow-up appointment to see Dr. Laguna in the office in one week. Patient will be discharged home on aspirin 81 mg daily, Lipitor 80 mg daily, lisinopril 5 mg daily, metoprolol tartrate 25 mg one tablet by mouth twice a day, Effient 10 mg daily and sublingual nitroglycerin as needed for chest pain. Patient has been educated regarding his medication, diet, activity , and follow-up appointment. DNP note has been reviewed, I agree with a documented findings and plan of care. Patient was seen and examined.
[2017-03-08 16:43] VITALS: BP 109/66; PULSE 74
[2017-03-08 16:54] LABS: Glucose,Whole Blood 168 mg/dL (75-99)
--- NOTE | 2017-03-08 17:32 | P.DS ---
Providers Date of admission: 03/06/17 06:18 Expected date of discharge: 03/08/17 Attending physician: Lane Suarez Consults: 03/06/17 06:18 Consult Physician Stat Consulting Provider: Gaudencio Laguna Consult Reason/Comments: stemi Do you want consulting provider notified?: Already Contacted 03/06/17 08:02 Consult Physician Routine Consulting Provider: [facility] Consult Reason/Comments: Post Interventional patient Do you want consulting provider notified?: Already Contacted Primary care physician: Lane Suarez Hospital Course: General: [Patient awake, alert and oriented times 3. Patient in no acute distress.] HEENT: [PERRL. EOMI. No pharyngeal erythema or exudate.] Neck: [No adenopathy.] Cardiac: [Heart regular in rate and rhythm. No S3. No S4. No clicks, rubs. No murmur.] Lungs: [Clear to auscultation bilaterally.] Abdomen: [No mass. No organomegaly. Bowel sounds presnt and normoactive in all 4 quadrants.] Extremes: [No edema no cyanosis no claudication normal pulses] : [] Musculoskeletal: [No joint erythema, edema or tenderness.] Skin: [No rash.] Neurologic: [No lateralizing deficits. CN II - XII grossly intact.] Lymphatic: [No adenopathy.] Pertinent Studies: Cardiac catheterization, angioplasty with stent placement Patient Condition at Discharge: Stable Plan - Discharge Summary New Discharge Prescriptions: New Atorvastatin [Lipitor] 80 mg PO HS #30 tab Lisinopril [Zestril] 5 mg PO DAILY #30 tab Metoprolol Tartrate [Lopressor] 25 mg PO BID #60 tab Nitroglycerin Sl Tabs [Nitrostat] 0.4 mg SUBLINGUAL Q5M PRN #25 tab PRN Reason: Chest Pain Prasugrel [Effient] 10 mg PO DAILY #30 tab Discontinued Pravastatin Sodium [Pravachol] 40 mg PO HS No Action HYDROcodone/APAP 10-325MG [Hardy 10-325] 1 tab PO Q6H PRN PRN Reason: Pain metFORMIN HCL [Glucophage] 500 mg PO BID DULoxetine HCL [Cymbalta] 60 mg PO BID Multivit-Min/FA/Lycopen/Lutein [Centrum Silver Men Tablet] 1 tab PO DAILY Empagliflozin [Jardiance] 25 mg PO DAILY glipiZIDE [Glucotrol] 10 mg PO BID Discharge Medication List DULoxetine HCL [Cymbalta] 60 mg PO BID 03/06/17 [History] Empagliflozin [Jardiance] 25 mg PO DAILY 03/06/17 [History] HYDROcodone/APAP 10-325MG [Hardy 10-325] 1 tab PO Q6H PRN 03/06/17 [History] Multivit-Min/FA/Lycopen/Lutein [Centrum Silver Men Tablet] 1 tab PO DAILY [History] glipiZIDE [Glucotrol] 10 mg PO BID 03/06/17 [History] metFORMIN HCL [Glucophage] 500 mg PO BID 03/06/17 [History] Atorvastatin [Lipitor] 80 mg PO HS #30 tab 03/08/17 [Rx] Lisinopril [Zestril] 5 mg PO DAILY #30 tab 03/08/17 [Rx] Metoprolol Tartrate [Lopressor] 25 mg PO BID #60 tab 03/08/17 [Rx] Nitroglycerin Sl Tabs [Nitrostat] 0.4 mg SUBLINGUAL Q5M PRN #25 tab 03/08/17 [Rx ] Prasugrel [Effient] 10 mg PO DAILY #30 tab 03/08/17 [Rx] Follow up Appointment(s)/Referral(s): Gaudencio Laguna MD [STAFF PHYSICIAN] - [address] Suarez MD [Primary Care Provider] - 1-2 days Patient Instructions/Handouts: Glipizide (By mouth), Metformin (By mouth), Empagliflozin (By mouth)
[2017-03-08] MEDS: ATORVASTATIN 80 MG TAB PO SCH (18:34)
== END 2017-03-08 19:08 | disposition home or self-care (01) | DRG 247 ==
LOC: EC 05:51 → 6ICU 06:18 → 6SEL 03-07 17:47
PROVIDERS: ADMIT Family Medicine; ATTEND Family Medicine
PROC: 027034Z Dilation of Coronary Artery, One Artery with Drug-eluting Intraluminal Device, Percutaneous Approach (ICD-10-PCS; principal; 2017-03-06 07:00)
PROC: B2151ZZ Fluoroscopy of Left Heart using Low Osmolar Contrast (ICD-10-PCS; principal; 2017-03-06 07:00)
PROC: 4A023N7 Measurement of Cardiac Sampling and Pressure, Left Heart, Percutaneous Approach (ICD-10-PCS; principal; 2017-03-06 07:00)
PROC: B2111ZZ Fluoroscopy of Multiple Coronary Arteries using Low Osmolar Contrast (ICD-10-PCS; principal; 2017-03-06 07:00)
DX: I21.19 ST elevation (STEMI) myocardial infarction involving other coronary artery of inferior wall (principal); I10 Essential (primary) hypertension; I25.10 Atherosclerotic heart disease of native coronary artery without angina pectoris; E11.9 Type 2 diabetes mellitus without complications; F32.9 Major depressive disorder, single episode, unspecified; E78.5 Hyperlipidemia, unspecified; I25.5 Ischemic cardiomyopathy; Z79.84 Long term (current) use of oral hypoglycemic drugs; Z79.899 Other long term (current) drug therapy
CPT/HCPCS: 71010; 80048; 80053; 80061; 82550; 82553; 83036; 83735; 84484; 85025; 85027; 85347; 85610; 85730; 93306; 93458; 96365; 96376; 99291

== ENCOUNTER → 2020-09-30 | Outpatient (CLI) | payer MEDICARE ==
[2020-09-30 19:17] LABS: African American GFR (CKD) 46.7 (60.0-200.0); Non-African American GFR(CKD) 40.3 (60.0-200.0)
== END | disposition home or self-care (01) ==
LOC: LABWHC1 12:01
PROVIDERS: ATTEND Nurse Practitioner Women's Health
DX: L03.116 Cellulitis of left lower limb (principal)
CPT/HCPCS: 36415; 82565; 84520; 87040

== ENCOUNTER → 2020-11-01 | Outpatient (CLI) | payer MEDICARE ==
--- NOTE | 2020-11-01 17:02 | XR ---
EXAMINATION TYPE: XR ankle complete 3 views LT, XR foot complete 3 views LT DATE OF EXAM: 11/01/2020 COMPARISON: NONE HISTORY: 70-year-old male medial foot and ankle swelling for one month. R22.42, M79.672 FINDINGS: Ankle: There is some degenerative spurring at the medial aspect of the tibiotalar joint and inferior aspect of the medial malleolus. Ankle mortise is otherwise preservation of the distal tibiofibular overlap. Large plantar heel spur. Subtalar joint is aligned. Vascular calcifications. There is also spurring f rom the talar neck. No acute fracture, subluxation, dislocation. 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 Some degenerative irregularity at the pseudoarticulatio n. Osteopenia. Large plantar heel spur. Bipartite tibial sesamoid. Some enthesopathy at the base of t he fifth metatarsal. IMPRESSION: 1. Ankle: Some degenerative change of the tibiotalar joint. Anterior spurring and dorsal talar neck s purring may potentially contribute to anterior impingement. Large plantar heel spur. 2. Foot: Given the patient's medial sided symptoms and the presence of a degenerative appearing type II accessory navicular, correlate for os naviculare syndrome and podiatry referral. There is some en thesopathy at the base of the fifth metatarsal that suggests insertional tendinopathy of the peroneus brevis.
== END | disposition home or self-care (01) ==
LOC: RADXRMAIN 12:29
PROVIDERS: ATTEND Nurse Practitioner Women's Health
DX: M19.072 Primary osteoarthritis, left ankle and foot (principal); M77.32 Calcaneal spur, left foot

== ENCOUNTER → 2020-11-22 | Outpatient (CLI) | payer MEDICARE ==
--- NOTE | 2020-11-23 00:45 | MR ---
EXAMINATION TYPE: MR foot LT wo con DATE OF EXAM: 11/22/2020 COMPARISON: None HISTORY: Left foot swelling x6 months Multiplanar multiecho imaging of the left foot was performed without contrast. There is subcutaneous edema and fluid involving the anterior foot and mainly on the dorsum of the mile t. There is increased signal in the proximal shaft of the second metatarsal on the T2 images. There i s also increased signal in the mid and proximal shaft of the fourth metatarsal and small area of the proximal third metatarsal. I see no definite fracture line. The plantar fascia appears intact. Achill es tendon is intact. The medial and lateral flexor tendons of the foot appear intact. There is abnormal increased signal also in the second and third cuneiform bone. The toes appear intac t. IMPRESSION: Subcutaneous edema. Multiple areas of edema involving the metatarsals and the second and third cuneif orm bones consistent with multiple areas of bone bruise. No fracture line seen. I do not suspect oste omyelitis.
== END | disposition home or self-care (01) ==
LOC: RADMRIMAIN 08:04
PROVIDERS: ATTEND Nurse Practitioner Women's Health
DX: R60.0 Localized edema (principal)

== ENCOUNTER 2021-04-04 11:07 | Emergency (ER) | payer MEDICARE ==
[2021-04-04 11:27] VITALS: TEMP 98.3
--- NOTE | 2021-04-04 12:25 | US ---
EXAMINATION TYPE: US venous doppler duplex LE LT DATE OF EXAM: 04/04/2021 11:32 AM COMPARISON: NONE CLINICAL HISTORY: pain. Pain in left calf. No hx of DVT. Patient takes blood thinners. Hx left knee r eplacement. SIDE PERFORMED: Left TECHNIQUE: The lower extremity deep venous system is examined utilizing real time linear array sonog cee with graded compression, doppler sonography and color-flow sonography. VESSELS IMAGED: Common Femoral Vein Deep Femoral Vein Greater Saphenous Vein * Femoral Vein Popliteal Vein Small Saphenous Vein * Proximal Calf Veins (* superficial vessels) Left Leg: No evidence of DVT in veins imaged at this time. Rouleaux flow seen within veins imaged. Co mplex area seen posterior left calf measuring 6.2 x 3.7 x 1.5 cm. IMPRESSION: No evidence for DVT.
--- NOTE | 2021-04-04 12:35 | ED ---
Lower Extremity Injury HPI - General Chief Complaint: Extremity Injury, Lower Stated Complaint: Poss DVT Time Seen by Provider: 04/04/21 11:28 Source: patient, RN notes reviewed Mode of arrival: ambulatory Limitations: no limitations - History of Present Illness Initial Comments: Patient is a 71-year-old male that presents to emergency room complaining of left lower leg pain. He notes that several days ago he tripped straining his Achilles. He thought nothing of it rested he notes that this morning he woke up with some bruising to the posterior aspect of his left knee. He decided to come in to the emergency room to get some evaluation due to the pain in the bruising. He denied any other issues or complaints. He notes that he is able to walk and interview in no issue. He was otherwise a well-appearing 71-year-old male in no apparent distress or pain. He denied chest pain shortness breath headache nausea vomiting diarrhea constipation fever fatigue chills weakness numbness tingling in his left lower leg. - Related Data Home Medications Medication Instructions Recorded Confirmed DULoxetine HCL [Cymbalta] 60 mg PO BID 03/06/17 03/06/17 Empagliflozin [Jardiance] 25 mg PO DAILY 03/06/17 03/06/17 HYDROcodone/APAP 10-325MG [Julian 1 tab PO Q6H PRN 03/06/17 03/06/17 10-325] Multivit-Min/FA/Lycopen/Lutein 1 tab PO DAILY 03/06/17 03/06/17 [Centrum Silver Men Tablet] glipiZIDE [Glucotrol] 10 mg PO BID 03/06/17 03/06/17 metFORMIN HCL [Glucophage] 500 mg PO BID 03/06/17 03/06/17 Previous Rx's Medication Instructions Recorded Atorvastatin [Lipitor] 80 mg PO HS #30 tab 03/08/17 Metoprolol Tartrate [Lopressor] 25 mg PO BID #60 tab 03/08/17 Nitroglycerin Sl Tabs [Nitrostat] 0.4 mg SUBLINGUAL Q5M PRN #25 tab 03/08/17 Prasugrel [Effient] 10 mg PO DAILY #30 tab 03/08/17 lisinopriL [Zestril] 5 mg PO DAILY #30 tab 03/08/17 Allergies Allergy/AdvReac Type Severity Reaction Status Date / Time No Known Allergies Allergy Verified 04/04/21 11:24 Review of Systems ROS Statement: Those systems with pertinent positive or pertinent negative responses have been documented in the HPI. ROS Other: All systems not noted in ROS Statement are negative. Past Medical History Past Medical History: Diabetes Mellitus History of Any Multi-Drug Resistant Organisms: None Reported Past Surgical History: Hernia Repair Past Anesthesia/Blood Transfusion Reactions: No Reported Reaction Past Psychological History: No Psychological Hx Reported Smoking Status: Never smoker Past Alcohol Use History: Rare Past Drug Use History: None Reported General Exam Limitations: no limitations General appearance: alert, in no apparent distress Head exam: Present: atraumatic, normocephalic, normal inspection Eye exam: Present: normal appearance, PERRL, EOMI. Absent: scleral icterus, conjunctival injection, periorbital swelling Neck exam: Present: normal inspection Respiratory exam: Present: normal lung sounds bilaterally. Absent: respiratory distress, wheezes, rales, rhonchi, stridor Cardiovascular Exam: Present: regular rate, normal rhythm, normal heart sounds. Absent: systolic murmur, diastolic murmur, rubs, gallop, clicks Extremities exam: Present: normal inspection, full ROM, normal capillary refill. Absent: tenderness, pedal edema, joint swelling, calf tenderness Left Knee exam: Present: normal inspection, full ROM, tenderness (Posterior aspect), ecchymosis (Posterior aspect). Absent: swelling, abrasion, laceration, deformity, crepitus, dislocation, erythema, effusion Neurovascular tendon exam: Present: no vascular compromise Neurological exam: Present: alert, oriented X3 Psychiatric exam: Present: normal affect, normal mood Skin exam: Present: warm, dry, intact, normal color. Absent: rash Course Vital Signs 04/04/21 11:24 Temperature 98.3 F Pulse Rate 88 Respiratory 18 Rate Blood Pressure 150/75 O2 Sat by Pulse 95 Oximetry Medical Decision Making - Medical Decision Making 71-year-old male complaining of left lower leg pain and bruising posterior to knee. Ultrasound of left lower extremity ordered. Patient declined need for pain medication this time. Ultrasound negative for any DVT. Case discussed with Dr. Land, patient discharge home with follow-up to primary care and conservative management including rest ice compress and eleva tion. - Radiology Data Radiology results: report reviewed, image reviewed Ultrasound left lower extremity: Negative for DVT. Disposition Clinical Impression: Pain in left lower leg, Superficial bruising of lower leg Disposition: HOME SELF-CARE Condition: Stable Instructions (If sedation given, give patient instructions): Knee Pain (ED) Additional Instructions: Please return to the Emergency Department if symptoms worsen or any other concerns. Follow-up with primary care in 1-2 days. Conservative management with rest ice compression elevation. Take Tylenol Motrin as needed for pain. Is patient prescribed a controlled substance at d/c from ED?: No Referrals: Lane Suarez MD [Primary Care Provider] - 1-2 days Time of Disposition: 12:34
[2021-04-04 12:53] VITALS: BP 126/74; PULSE 84; RESP 16
== END 2021-04-04 12:53 | disposition home or self-care (01) ==
LOC: EC 11:07
DX: S80.12XA Contusion of left lower leg, initial encounter (principal); E11.9 Type 2 diabetes mellitus without complications; Z79.84 Long term (current) use of oral hypoglycemic drugs; W01.0XXA Fall on same level from slipping, tripping and stumbling without subsequent striking against object, initial encounter
CPT/HCPCS: 99283

== ENCOUNTER 2021-10-31 05:19 | Emergency (ER) | payer MEDICARE ==
[2021-10-31 05:28] VITALS: TEMP 97.8
--- NOTE | 2021-10-31 06:06 | ED ---
ENT HPI - General Chief complaint: ENT Stated complaint: throat issues Time Seen by Provider: 10/31/21 05:39 Source: patient Mode of arrival: ambulatory Limitations: no limitations - History of Present Illness Initial comments: This patient is 71-year-old man who presents evaluation for sore throat. There is a little bit of nasal drip. Has not noted fever or chills. No cough or dyspnea. MD complaint: sore throat -: days(s) Location: throat Severity: mild Quality: burning Consistency: constant Improves with: none Worsens with: none - Related Data Home Medications Medication Instructions Recorded Confirmed DULoxetine HCL [Cymbalta] 60 mg PO BID 03/06/17 03/06/17 Empagliflozin [Jardiance] 25 mg PO DAILY 03/06/17 03/06/17 HYDROcodone/APAP 10-325MG [Petrolia 1 tab PO Q6H PRN 03/06/17 03/06/17 10-325] Multivit-Min/FA/Lycopen/Lutein 1 tab PO DAILY 03/06/17 03/06/17 [Centrum Silver Men Tablet] glipiZIDE [Glucotrol] 10 mg PO BID 03/06/17 03/06/17 metFORMIN HCL [Glucophage] 500 mg PO BID 03/06/17 03/06/17 Previous Rx's Medication Instructions Recorded Atorvastatin [Lipitor] 80 mg PO HS #30 tab 03/08/17 Metoprolol Tartrate [Lopressor] 25 mg PO BID #60 tab 03/08/17 Nitroglycerin Sl Tabs [Nitrostat] 0.4 mg SUBLINGUAL Q5M PRN #25 tab 03/08/17 Prasugrel [Effient] 10 mg PO DAILY #30 tab 03/08/17 lisinopriL [Zestril] 5 mg PO DAILY #30 tab 03/08/17 Allergies Allergy/AdvReac Type Severity Reaction Status Date / Time No Known Allergies Allergy Verified 10/31/21 05:28 Review of Systems ROS Statement: Those systems with pertinent positive or pertinent negative responses have been documented in the HPI. ROS Other: All systems not noted in ROS Statement are negative. Constitutional: Denies: fever, chills ENT: Reports: throat pain. Denies: congestion Respiratory: Denies: cough, dyspnea Gastrointestinal: Denies: vomiting, diarrhea Skin: Denies: rash Neurological: Denies: headache Past Medical History Past Medical History: Diabetes Mellitus History of Any Multi-Drug Resistant Organisms: None Reported Past Surgical History: Hernia Repair Past Anesthesia/Blood Transfusion Reactions: No Reported Reaction Past Psychological History: No Psychological Hx Reported Smoking Status: Never smoker Past Alcohol Use History: Rare Past Drug Use History: None Reported General Exam Limitations: no limitations General appearance: alert, in no apparent distress Head exam: Present: atraumatic, normocephalic Eye exam: Present: normal appearance. Absent: scleral icterus, conjunctival injection ENT exam: Present: normal oropharynx Respiratory exam: Present: normal lung sounds bilaterally. Absent: respiratory distress, wheezes, rales, rhonchi, stridor Cardiovascular Exam: Present: regular rate, normal rhythm, normal heart sounds. Absent: systolic murmur, diastolic murmur, rubs, gallop GI/Abdominal exam: Present: soft. Absent: distended, tenderness, guarding Neurological exam: Present: alert Skin exam: Present: warm, dry, intact, normal color. Absent: rash Course Vital Signs 10/31/21 10/31/21 05:24 07:30 Temperature 97.8 F Pulse Rate 91 90 Respiratory 22 18 Rate Blood Pressure 133/82 151/79 O2 Sat by Pulse 98 98 Oximetry Medical Decision Making - Lab Data Lab Results 10/31/21 10/31/21 10/31/21 Range/Units 05:53 05:53 05:53 Coronavirus (PCR) Detected A (Not Detectd) Influenza Type A RNA Not Detected (Not Detectd) Influenza Type B (PCR) Not Detected (Not Detectd) Group A Strep Rapid Negative (Negative) Disposition Clinical Impression: COVID-19 Disposition: HOME SELF-CARE Condition: Good Instructions (If sedation given, give patient instructions): COVID-19 (Coronavirus Disease 2019) (ED) Is patient prescribed a controlled substance at d/c from ED?: No Referrals: Efrain Cruz Jr, [Primary Care Provider] - 1-2 days
[2021-10-31 07:41] VITALS: BP 151/79; PULSE 90; RESP 18
[2021-10-31] MEDS ORDERED: BEBTELOVIMAB (EUA) 175 MG/2 ML VIAL IV ONE (08:00)
== END 2021-10-31 08:56 | disposition home or self-care (01) ==
LOC: EC 05:19
DX: U07.1 COVID-19 (principal); E11.9 Type 2 diabetes mellitus without complications; Z79.84 Long term (current) use of oral hypoglycemic drugs
CPT/HCPCS: 87081; 87430; 87502; 87635; 99283; Q0222

== ENCOUNTER → 2022-01-21 | Outpatient (CLI) | payer MEDICARE ==
--- NOTE | 2022-01-22 03:50 | MR ---
EXAMINATION TYPE: MR shoulder LT wo con DATE OF EXAM: 01/21/2022 COMPARISON: None HISTORY: Left shoulder pain and limited movement for 6 months. Multiplanar multiecho imaging of the left shoulder with no contrast. There is mild shoulder joint effusion. Subscapularis tendon is intact. Glenoid davide appear intact. B iceps tendon is intact. There is some hypertrophic spurring at the AC joint and no significant subacr omial impingement. There is some thickening and increased signal in the supraspinatus tendon near the attachment on the greater tuberosity. No retraction. No fracture seen. There are numerous small roun ded areas of fluid signal in the humeral head and neck. IMPRESSION: There is large full-thickness tear of the supraspinatus tendon without any significant retraction. Hy pertrophic spurring at the AC joint. Shoulder joint effusion. No fracture seen. 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
== END | disposition home or self-care (01) ==
LOC: RADMRIMAIN 18:50
PROVIDERS: ATTEND Family Medicine
DX: M75.122 Complete rotator cuff tear or rupture of left shoulder, not specified as traumatic (principal)

== ENCOUNTER 2023-03-22 18:05 | Observation (INO) | payer MEDICARE, OTHER ==
[2023-03-22] MEDS ORDERED: SODIUM CHLORIDE 0.9% 1,000 ML IV STA ×2 (18:12)
[2023-03-22] MEDS ORDERED: SODIUM CHLORIDE 0.9% 500 ML 500 ML IV STA (18:12)
--- NOTE | 2023-03-22 18:15 | ED ---
Syncope HPI - General Stated Complaint: Syncope Time Seen by Provider: 03/22/23 18:07 Source: EMS, RN notes reviewed, old records reviewed Mode of arrival: EMS Limitations: no limitations - History of Present Illness Initial Comments: This is a 73-year-old male to the emergency department for evaluation of recurrent syncopal events here in the ER. Patient has severe syncopal event prior to arrival. Patient was doing his normal job working a when he began to feel very lightheaded dizzy. Patient passed out multiple times. Patient has no chest pain no shortness of breath no travel history no sick contacts. MD Complaint: loss of consciousness, felt faint, collapsed, other (Patient has had multiple syncopal event) -: hour(s) Prodromal Symptoms: lightheaded, palpitations, heart racing, shortness of breath -: second(s) Witnessed: yes - by bystander Injuries Sustained Associated with Event: None Context: during exertion - Related Data Home Medications Medication Instructions Recorded Confirmed metFORMIN HCL [Glucophage] 1,000 mg PO BID 03/06/17 03/22/23 Gabapentin [Neurontin] 400 mg PO BID@0900,1500 03/22/23 03/22/23 Gabapentin [Neurontin] 800 mg PO HS 03/22/23 03/22/23 Insulin Glargine,Hum.rec.anlog 36 units SQ HS 03/22/23 03/22/23 [Lantus Solostar Pen] Losartan Potassium [Cozaar] 25 mg PO DAILY 03/22/23 03/22/23 Semaglutide [Ozempic] 2 mg SQ SA 03/22/23 03/22/23 allopurinoL [Zyloprim] 100 mg PO DAILY 03/22/23 03/22/23 Previous Rx's Medication Instructions Recorded Atorvastatin [Lipitor] 80 mg PO HS #30 tab 03/08/17 Allergies Allergy/AdvReac Type Severity Reaction Status Date / Time No Known Allergies Allergy Verified 03/22/23 20:35 Review of Systems ROS Statement: Those systems with pertinent positive or pertinent negative responses have been documented in the HPI. ROS Other: All systems not noted in ROS Statement are negative. Past Medical History Past Medical History: Diabetes Mellitus Additional Past Medical History / Comment(s): Stent placement 2017 History of Any Multi-Drug Resistant Organisms: None Reported Past Surgical History: Hernia Repair Past Anesthesia/Blood Transfusion Reactions: No Reported Reaction Past Psychological History: No Psychological Hx Reported Smoking Status: Never smoker Past Alcohol Use History: Rare Past Drug Use History: None Reported General Exam Limitations: no limitations General appearance: alert, in no apparent distress Head exam: Present: atraumatic, normocephalic, normal inspection Eye exam: Present: normal appearance, PERRL, EOMI. Absent: scleral icterus, conjunctival injection, periorbital swelling ENT exam: Present: normal exam, mucous membranes moist Neck exam: Present: normal inspection. Absent: tenderness, meningismus, lymphadenopathy Respiratory exam: Present: normal lung sounds bilaterally. Absent: respiratory distress, wheezes, rales, rhonchi, stridor Cardiovascular Exam: Present: regular rate, normal rhythm, normal heart sounds. Absent: systolic murmur, diastolic murmur, rubs, gallop, clicks GI/Abdominal exam: Present: soft, normal bowel sounds. Absent: distended, tenderness, guarding, rebound, rigid Extremities exam: Present: normal inspection, full ROM, normal capillary refill. Absent: tenderness, pedal edema, joint swelling, calf tenderness Back exam: Present: normal inspection Neurological exam: Present: alert, oriented X3, CN II-XII intact Psychiatric exam: Present: normal affect, normal mood Skin exam: Present: warm, dry, intact, normal color. Absent: rash Course Vital Signs 03/22/23 03/22/23 03/22/23 18:10 19:08 20:00 Temperature 97.4 F L Pulse Rate 89 107 H 105 H Respiratory 18 20 16 Rate Blood Pressure 123/67 153/84 135/73 O2 Sat by Pulse 96 99 99 Oximetry - Reevaluation(s) Reevaluation #1: 03/22/23 22:06 Medical record is reviewed Reevaluation #2: 03/22/23 22:06 No recurrent syncope here in the ER Reevaluation #3: 03/22/23 22:06 Patient informed of results and questions answered Reevaluation #4: 03/22/23 18:14 Was pt. sent in by a medical professional or institution (, PA, [employer], urgent care, hospital, or group home...) When possible be specific @ -no Did you speak to anyone other than the patient for history (EMS, parent, family, police, friend...)? What history was obtained from this source @ -no Did you review nursing and triage notes (agree or disagree)? Why? @ -agree Are old charts reviewed (outside hosp., previous admission, EMS record, old EKG, old radiological studies, urgent care reports/EKG's, group home records)? Report findings @ -yes Differential Diagnosis (chest pain, altered mental status, abdominal pain women, abdominal pain men, vaginal bleeding, weakness, fever, dyspnea, syncope, headache, dizziness, GI bleed, back pain, seizure, CVA, palpatations, mental health, musculoskeletal)? @ -prior EKG interpreted by me (3pts min.). @ -yes X-rays interpreted by me (1pt min.). @ -yes CT interpreted by me (1pt min.). @ -no U/S interpreted by me (1pt. min.). @ -no What testing was considered but not performed or refused? (CT, X-rays, U/S, labs)? Why? @ -none What meds were considered but not given or refused? Why? @ -none Did you discuss the management of the patient with other professionals (professionals i.e. , PA, [employer], lab, RT, psych nurse, administrator social welfare, safe deposit attendant, teacher, state wildlife officer, catalytic case operator)? Give summary @ -no Was smoking cessation discussed for >3mins.? @ -no Was critical care preformed (if so, how long)? @ -no Were there social determinants of health that impacted care today? How? (Homelessness, low income, unemployed, alcoholism, drug addiction, transportation, low edu. Level, literacy, decrease access to med. care, halfway, rehab)? @ -none Was there de-escalation of care discussed even if they declined (Discuss DNR or withdrawal of care, Hospice)? DNR status @ -no What co-morbidities impacted this encounter? (DM, HTN, Smoking, COPD, CAD, Cancer, CVA, ARF, Chemo, Hep., AIDS, mental health diagnosis, sleep apnea, morbid obesity)? @ -none Was patient admitted / discharged? Hospital course, mention meds given and route, prescriptions, significant lab abnormalities, going to OR and other pert inent info. @ - Undiagnosed new problem with uncertain prognosis? @ -no Drug Therapy requiring intensive monitoring for toxicity (Heparin, Nitro, Insulin, Cardizem)? @ -no Were any procedures done? @ -no Diagnosis/symptom? @ - Acute, or Chronic, or Acute on Chronic? @ -Acute Uncomplicated (without systemic symptoms) or Complicated (systemic symptoms)? @ -Complicated Side effects of treatment? @ -no Exacerbation, Progression, or Severe Exacerbation? @ -exacerbation Poses a threat to life or bodily function? How? (Chest pain, [place], [place], pneumonia, PE, COPD, DKA, ARF, appy, cholecystitis, CVA, Diverticulitis, Homicidal, Suicidal, threat to staff... and all critical care pts) @ -yes Reevaluation #5: 03/22/23 22:06 Differential Syncope: Valvular disease, hypertrophic cardiomyopathy, pulmonary embolism, tamponade, tachycardia, bradycardia, [place], hypovolemia, hemorrhage, dissection, anemia, intracranial hemorrhage, seizure, hypoglycemia, carbon monoxide poisoning, this is not meant to be an all-inclusive list. - Consultations Consultation #1: Spoke with Dr. Cruz who agrees to admit this patient EKG Findings - EKG Comments: EKG Findings:: EKG is sinus 89 MN 166 QRS 89 QTC 419 - EKG Results: EKG: interpreted by VELMA Medical Decision Making - Medical Decision Making 73 male to the emergency department for evaluation of recurrent syncopal event to syncopal events prior to arrival with complete loss of consciousness unknown amount of time events occurred. Patient does have elevated d-dimer and bad kidneys, patient will be admitted for a VQ scan to rule out PE and further evaluation of syncope by cardiology - Lab Data Result diagrams: 03/22/23 18:15 03/22/23 18:15 Lab Results 03/22/23 03/22/23 03/22/23 Range/Units 18:15 18:15 18:15 WBC 12.6 H (3.8-10.6) k/uL RBC 4.29 L (4.30-5.90) m/uL Hgb 12.8 L (13.0-17.5) gm/dL Hct 38.5 L (39.0-53.0) % MCV 89.8 (80.0-100.0) fL MCH 29.9 (25.0-35.0) pg MCHC 33.3 (31.0-37.0) g/dL RDW 13.1 (11.5-15.5) % Plt Count 220 (150-450) k/uL MPV 8.3 Neutrophils % 81 % Lymphocytes % 14 % Monocytes % 4 % Eosinophils % 1 % Basophils % 0 % Neutrophils # 10.1 H (1.3-7.7) k/uL Lymphocytes # 1.7 (1.0-4.8) k/uL Monocytes # 0.5 (0-1.0) k/uL Eosinophils # 0.1 (0-0.7) k/uL Basophils # 0.0 (0-0.2) k/uL PT 11.1 (9.0-12.0) sec INR 1.1 (<1.2) APTT 19.7 L (22.0-30.0) sec D-Dimer 0.91 H (<0.60) mg/L FEU Sodium 137 (137-145) mmol/L Potassium 4.7 (3.5-5.1) mmol/L Chloride 103 (98-107) mmol/L Carbon Dioxide 21 L (22-30) mmol/L Anion Gap 13 mmol/L BUN 25 H (9-20) mg/dL Creatinine 2.02 H (0.66-1.25) mg/dL Est GFR (CKD-EPI)AfAm 37 (>60 ml/min/1.73 sqM) Est GFR (CKD-EPI)NonAf 32 (>60 ml/min/1.73 sqM) Glucose 176 H (74-99) mg/dL Lactic Ac Sepsis Rflx Plasma Lactic Acid Boni (0.7-2.0) mmol/L Calcium 9.4 (8.4-10.2) mg/dL Phosphorus 4.2 (2.5-4.5) mg/dL Magnesium 1.3 L (1.6-2.3) mg/dL Total Bilirubin 1.1 (0.2-1.3) mg/dL AST 33 (17-59) U/L ALT 29 (4-49) U/L Alkaline Phosphatase 76 (38-126) U/L Troponin I (0.000-0.034) ng/mL NT-Pro-B Natriuret Pep <20 pg/mL Total Protein 7.4 (6.3-8.2) g/dL Albumin 4.2 (3.5-5.0) g/dL TSH 1.780 (0.465-4.680) mIU/L Urine Color 03/22/23 03/22/23 03/22/23 Range/Units 18:15 18:15 19:24 WBC (3.8-10.6) k/uL RBC (4.30-5.90) m/uL Hgb (13.0-17.5) gm/dL Hct (39.0-53.0) % MCV (80.0-100.0) fL MCH (25.0-35.0) pg MCHC (31.0-37.0) g/dL RDW (11.5-15.5) % Plt Count (150-450) k/uL MPV Neutrophils % % Lymphocytes % % Monocytes % % Eosinophils % % Basophils % % Neutrophils # (1.3-7.7) k/uL Lymphocytes # (1.0-4.8) k/uL Monocytes # (0-1.0) k/uL Eosinophils # (0-0.7) k/uL Basophils # (0-0.2) k/uL PT (9.0-12.0) sec INR (<1.2) APTT (22.0-30.0) sec D-Dimer (<0.60) mg/L FEU Sodium (137-145) mmol/L Potassium (3.5-5.1) mmol/L Chloride (98-107) mmol/L Carbon Dioxide (22-30) mmol/L Anion Gap mmol/L BUN (9-20) mg/dL Creatinine (0.66-1.25) mg/dL Est GFR (CKD-EPI)AfAm (>60 ml/min/1.73 sqM) Est GFR (CKD-EPI)NonAf (>60 ml/min/1.73 sqM) Glucose (74-99) mg/dL Lactic Ac Sepsis Rflx Y Plasma Lactic Acid Boni 3.3 H* (0.7-2.0) mmol/L Calcium (8.4-10.2) mg/dL Phosphorus (2.5-4.5) mg/dL Magnesium (1.6-2.3) mg/dL Total Bilirubin (0.2-1.3) mg/dL AST (17-59) U/L ALT (4-49) U/L Alkaline Phosphatase (38-126) U/L Troponin I <0.012 (0.000-0.034) ng/mL NT-Pro-B Natriuret Pep pg/mL Total Protein (6.3-8.2) g/dL Albumin (3.5-5.0) g/dL TSH (0.465-4.680) mIU/L Urine Color 03/22/23 03/22/23 Range/Units 21:33 21:35 WBC (3.8-10.6) k/uL RBC (4.30-5.90) m/uL Hgb (13.0-17.5) gm/dL Hct (39.0-53.0) % MCV (80.0-100.0) fL MCH (25.0-35.0) pg MCHC (31.0-37.0) g/dL RDW (11.5-15.5) % Plt Count (150-450) k/uL MPV Neutrophils % % Lymphocytes % % Monocytes % % Eosinophils % % Basophils % % Neutrophils # (1.3-7.7) k/uL Lymphocytes # (1.0-4.8) k/uL Monocytes # (0-1.0) k/uL Eosinophils # (0-0.7) k/uL Basophils # (0-0.2) k/uL PT (9.0-12.0) sec INR (<1.2) APTT (22.0-30.0) sec D-Dimer (<0.60) mg/L FEU Sodium (137-145) mmol/L Potassium (3.5-5.1) mmol/L Chloride (98-107) mmol/L Carbon Dioxide (22-30) mmol/L Anion Gap mmol/L BUN (9-20) mg/dL Creatinine (0.66-1.25) mg/dL Est GFR (CKD-EPI)AfAm (>60 ml/min/1.73 sqM) Est GFR (CKD-EPI)NonAf (>60 ml/min/1.73 sqM) Glucose (74-99) mg/dL Lactic Ac Sepsis Rflx Plasma Lactic Acid Boni 1.8 (0.7-2.0) mmol/L Calcium (8.4-10.2) mg/dL Phosphorus (2.5-4.5) mg/dL Magnesium (1.6-2.3) mg/dL Total Bilirubin (0.2-1.3) mg/dL AST (17-59) U/L ALT (4-49) U/L Alkaline Phosphatase (38-126) U/L Troponin I (0.000-0.034) ng/mL NT-Pro-B Natriuret Pep pg/mL Total Protein (6.3-8.2) g/dL Albumin (3.5-5.0) g/dL TSH (0.465-4.680) mIU/L Urine Color Yellow - EKG Data -: EKG Interpreted by Me Critical Care Time Critical Care Time: Yes Total Critical Care Time: 31 Disposition Clinical Impression: Dehydration, S/P right coronary artery (RCA) stent placement, Syncope, Arrhyth pete Disposition: ADMITTED IP TO THIS [facility] Condition: Fair Is patient prescribed a controlled substance at d/c from ED?: No Referrals: Efarin Cruz Jr, [Primary Care Provider] - 1-2 days Time of Disposition: 22:00
[2023-03-22 18:39] LABS: Basophils % (A) 0 %; Eosinophils # (A) 0.1 k/uL (0-0.7); Eosinophils % (A) 1 %; HCT 38.5 % (39.0-53.0); HGB 12.8 gm/dL (13.0-17.5); Lymphocytes # (A) 1.7 k/uL (1.0-4.8); Lymphocytes % (A) 14 %; MCH 29.9 pg (25.0-35.0); MCHC 33.3 g/dL (31.0-37.0); MCV 89.8 fL (80.0-100.0); Mean Platelet Volume 8.3; Monocytes # (A) 0.5 k/uL (0-1.0); Monocytes % (A) 4 %; Neutrophils # (A) 10.1 k/uL (1.3-7.7); Neutrophils % (A) 81 %; Platelet Count 220 k/uL (150-450); RBC 4.29 m/uL (4.30-5.90); RDW 13.1 % (11.5-15.5); WBC 12.6 k/uL (3.8-10.6)
[2023-03-22 18:52] LABS: ALT 29 U/L (4-49); AST 33 U/L (17-59); African American GFR (CKD) 37 (>60 ml/min/1.73 sqM); Albumin 4.2 g/dL (3.5-5.0); Alkaline Phosphatase 76 U/L (38-126); Anion Gap 13 mmol/L; Blood Urea Nitrogen 25 mg/dL (9-20); Calcium 9.4 mg/dL (8.4-10.2); Carbon Dioxide 21 mmol/L (22-30); Chloride 103 mmol/L (98-107); Glucose 176 mg/dL (74-99); Magnesium 1.3 mg/dL (1.6-2.3); Non-African American GFR(CKD) 32 (>60 ml/min/1.73 sqM); Phosphorus 4.2 mg/dL (2.5-4.5); Potassium 4.7 mmol/L (3.5-5.1); Sodium 137 mmol/L (137-145); Total Bilirubin 1.1 mg/dL (0.2-1.3); Total Protein 7.4 g/dL (6.3-8.2)
[2023-03-22 19:00] LABS: NT-Pro-B-Type Natriuretic Pept <20 pg/mL
[2023-03-22 19:50] LABS: INR 1.1 (<1.2); Prothrombin Time 11.1 sec (9.0-12.0)
[2023-03-22 20:45] LABS: Partial Thromboplastin Time 19.7 sec (22.0-30.0)
[2023-03-22 22:01] LABS: Color,Urine Yellow
[2023-03-22 22:05] LABS: Appearance,Urine Clear (Clear); Bilirubin,Urine Negative (Negative); Blood,Urine Negative (Negative); Glucose,Urine (UA) Negative (Negative); Ketones,Urine Negative (Negative); Leukocyte Esterase,Urine Negative (Negative); Nitrite,Urine Negative (Negative); PH, Urine 5.5 (5.0-8.0); Protein,Urine Negative (Negative); Specific Gravity,Urine 1.009 (1.001-1.035); Urobilinogen,Urine <2.0 mg/dL (<2.0)
[2023-03-22] MEDS ORDERED: HEPARIN SODIUM 1,000 UN/ML (10ML VL) IV PRN (22:09)
[2023-03-22] MEDS ORDERED: HEPARIN SODIUM 1,000 UN/ML (10ML VL) IV ONE (22:09)
[2023-03-22] MEDS ORDERED: NALOXONE 0.4 MG/ML 1 ML VIAL IV PRN (22:09)
[2023-03-22] MEDS ORDERED: HEPARIN SOD,PORK IN 0.45% NACL 25,000 UNIT in 0.45% NACL 1 250ML.BAG IV SCH (22:15)
[2023-03-22] MEDS ORDERED: ONDANSETRON 4 MG/2 ML VIAL IVP PRN (22:17)
[2023-03-22] MEDS ORDERED: MORPHINE SULFATE 4 MG/ML SYRINGE IV PRN (22:17)
--- NOTE | 2023-03-22 22:45 | XR ---
EXAM: XR Chest, 2 Views CLINICAL HISTORY: ITS.REASON XR Reason: pe TECHNIQUE: Frontal and lateral views of the chest. COMPARISON: No relevant prior studies available. FINDINGS: Lungs: Unremarkable. No consolidation. Pleural space: Unremarkable. No pneumothorax. Heart: Unremarkable. No cardiomegaly. Mediastinum: Unremarkable. Bones/joints: Unremarkable. IMPRESSION: No infiltrate.
[2023-03-22] MEDS: SODIUM CHLORIDE 0.9% 1,000 ML IV SCH (22:49)
[2023-03-23] MEDS: GABAPENTIN 400 MG CAP PO SCH ×2 (00:22→09:41)
[2023-03-23 01:05] LABS: Glucose,Whole Blood 154 mg/dL (70-110)
[2023-03-23 01:09] VITALS: TEMP 98.3
[2023-03-23] MEDS: SODIUM CHLORIDE 0.9% 1,000 ML IV SCH ×2 (06:35→13:21)
--- NOTE | 2023-03-23 09:38 | NM ---
EXAMINATION TYPE: NM pul vent and perfuse DATE OF EXAM: 03/23/2023 CLINICAL INDICATION: Male, 73 years old with shortness of breath and history of PE; Comparison: Radiograph 03/22/2023 TECHNIQUE: Utilizing inhalation of 38.6 mCi Tc 99m DTPA aerosol and intravenous injection of 5.2 mCi of Tc 99m MAA, ventilation and perfusion images are acquired post injection in multiple projections. FINDINGS: Normal radiotracer distribution is noted in the lungs. There is no evidence of mismatched defects. IMPRESSION: Very low probability for pulmonary embolus.
--- NOTE | 2023-03-23 11:53 | P.CRDCN ---
History of Present Illness History of present illness: HISTORY OF PRESENT ILLNESS: This is a 73-year-old male with a past medical history significant for hypertension, hyperlipidemia, diabetes, and coronary artery disease with previous stenting of the proximal RCA. Patient follows in the office with Dr. Laguna but has not been seen in the office since January 2020. We have been asked to see the patient in consultation for syncope. Patient examined at the bedside in the emergency room. The patient states he was at work yesterday and was feeling in his normal state of health in the morning. He states that he began to feel dizzy so he went to sit down and put his head on the desk. He states the Nexium he knew he woke up on the floor and had vomited. He states when he came to he was weak all over but was alert and oriented. He denied any chest pain or pressure. He denied any shortness of breath. He denied any palpitations. He states he has not had any syncopal episodes in the past. * EKG reveals sinus mechanism with no signs of acute ischemia * Chest xray negative for acute process * VQ scan: Very low probability for pulmonary embolism * Current home cardiac medications include atorvastatin 80 mg at night and losartan 25 mg daily * Most recent echocardiogram obtained in December 2017 revealed ejection fraction 55%, mild MR, mild TR * Cardiac catheterization history: February 2017 with stenting of the proximal RCA REVIEW OF SYSTEMS: At the time of my exam: CONSTITUTIONAL: Denies fever or chills. HEENT: Denies blurred vision, vision changes, or eye pain. Denies hemoptysis CARDIOVASCULAR: Denies chest pain. Denies orthopnea. Denies PND. Denies palpitations RESPIRATORY: Denies shortness of breath. GASTROINTESTINAL: Denies abdominal pain. Denies nausea or vomiting. HEMATOLOGIC: Denies bleeding disorders. GENITOURINARY: Denies any blood in urine. SKIN: Denies pruitis. Denies rash. PHYSICAL EXAM: VITAL SIGNS: Reviewed. GENERAL: Well-developed in no acute distress. HEENT: Head is normocephalic. Pupils are equal, round. Sclerae anicteric. Mucous membranes of the mouth are moist. Neck supple. No JVD or thyromegaly LUNGS: Respirations even and unlabored. Lungs essentially clear to auscultation bilaterally. HEART: Regular rate and rhythm. S1 and S2 heard. ABDOMEN: Soft. Nondistended. Nontender. EXTREMITIES: Normal range of motion. No clubbing or cyanosis. Peripheral pulses intact. No lower extremity edema NEUROLOGIC: Awake and alert. Oriented x 3. ASSESSMENT: Syncope, etiology unclear Coronary artery disease with previous stenting of the RCA, 2017 Hypertension Hyperlipidemia Diabetes PLAN: Obtain 2-D echo to assess cardiac structure and function Discontinue IV heparin as VQ scan reveals very low probability for PE Resume home cardiac medications Aspirin 81 mg daily Continue telemetry monitoring to assess for any arrhythmias Further recommendations pending patient's course Nurse practitioner note has been reviewed by physician. Signing provider agrees with the documented findings, assessment, and plan of care. Past Medical History Past Medical History: Coronary Artery Disease (CAD), Diabetes Mellitus Additional Past Medical History / Comment(s): Stent placement 2016 History of Any Multi-Drug Resistant Organisms: None Reported Past Surgical History: Heart Catheterization With Stent, Hernia Repair, Orthopedic Surgery Additional Past Surgical History / Comment(s): Stent 2017 Past Anesthesia/Blood Transfusion Reactions: No Reported Reaction Date of Last Stent Placement:: 2016 Past Psychological History: No Psychological Hx Reported Smoking Status: Never smoker Past Alcohol Use History: Rare Past Drug Use History: None Reported Medications and Allergies Home Medications Medication Instructions Recorded Confirmed Type metFORMIN HCL [Glucophage] 1,000 mg PO BID 03/06/17 03/22/23 History Atorvastatin [Lipitor] 80 mg PO HS #30 tab 03/08/17 03/22/23 Rx Gabapentin [Neurontin] 400 mg PO BID@0900,1500 03/22/23 03/22/23 History Gabapentin [Neurontin] 800 mg PO HS 03/22/23 03/22/23 History Insulin Glargine,Hum.rec.anlog 36 units SQ HS 03/22/23 03/22/23 History [Lantus Solostar Pen] Losartan Potassium [Cozaar] 25 mg PO DAILY 03/22/23 03/22/23 History Semaglutide [Ozempic] 2 mg SQ SA 03/22/23 03/22/23 History allopurinoL [Zyloprim] 100 mg PO DAILY 03/22/23 03/22/23 History Allergies Allergy/AdvReac Type Severity Reaction Status Date / Time No Known Allergies Allergy Verified 03/22/23 20:35 Physical Exam Vitals: Vital Signs Temp Pulse Resp BP BP Pulse Ox 03/23/23 01:08 98.3 F 16 144/80 98 03/22/23 22:00 105 H 15 138/85 97 03/22/23 20:00 105 H 16 135/73 99 03/22/23 19:08 107 H 20 153/84 99 03/22/23 18:10 97.4 F L 89 18 123/67 96 Intake and Output 03/22/23 03/23/23 03/23/23 22:59 06:59 14:59 Intake Total 862.298 Output Total 600 Balance 262.298 Intake: IV 780 Sodium Chloride 0.9% 1, 780 000 ml @ 130 mls/hr IV . Q7H42M [facility] Rx#:[id number] Intake, IV Titration 82.298 Amount Heparin Sod,Pork in 0.45% 82.298 NaCl 25,000 unit In 0.45 % NaCl 1 250ml.bag @ 18 UNITS/KG/HR 14.696 mls/hr IV .Q17H1M [facility] Rx#: [id number] Output: Urine 600 Other: Voiding Method Toilet Weight 81.647 kg 81.647 kg Results 03/22/23 18:15 03/22/23 18:15 Cardiac Enzymes 03/22/23 03/22/23 03/23/23 Range/Units 18:15 18:15 00:19 AST 33 (17-59) U/L Troponin I <0.012 <0.012 (0.000-0.034) ng/mL 03/23/23 Range/Units 03:36 AST (17-59) U/L Troponin I <0.012 (0.000-0.034) ng/mL Coagulation 03/22/23 03/23/23 Range/Units 18:15 03:36 PT 11.1 (9.0-12.0) sec APTT 19.7 L 123.6 H* (22.0-30.0) sec CBC 03/22/23 Range/Units 18:15 WBC 12.6 H (3.8-10.6) k/uL RBC 4.29 L (4.30-5.90) m/uL Hgb 12.8 L (13.0-17.5) gm/dL Hct 38.5 L (39.0-53.0) % Plt Count 220 (150-450) k/uL Comprehensive Metabolic Panel 03/22/23 Range/Units 18:15 Sodium 137 (137-145) mmol/L Potassium 4.7 (3.5-5.1) mmol/L Chloride 103 (98-107) mmol/L Carbon Dioxide 21 L (22-30) mmol/L BUN 25 H (9-20) mg/dL Creatinine 2.02 H (0.66-1.25) mg/dL Glucose 176 H (74-99) mg/dL Calcium 9.4 (8.4-10.2) mg/dL AST 33 (17-59) U/L ALT 29 (4-49) U/L Alkaline Phosphatase 76 (38-126) U/L Total Protein 7.4 (6.3-8.2) g/dL Albumin 4.2 (3.5-5.0) g/dL Current Medications Generic Name Dose Route Start Last Admin Trade Name Freq PRN Reason Stop Dose Admin Gabapentin 400 mg 03/23/23 00:15 03/23/23 00:22 Gabapentin 400 Mg Cap PO 400 mg BID MARA[facility] Administration Heparin Sodium (Porcine) 0 unit 03/22/23 22:09 Heparin Sodium 1,000 Un/Ml (10ml Vl) IV PER PROTOCOL PRN Low PTT Protocol Heparin Sodium/Sodium Chloride 250 mls @ 14.696 mls/hr 03/22/23 22:15 03/23/23 05:28 25,000 unit/ Sodium Chloride IV 15 units/kg/hr .Q17H1M [facility] 12.247 mls/hr Titration Protocol 18 UNITS/KG/HR Sodium Chloride 1,000 mls @ 130 mls/hr 03/22/23 22:30 03/23/23 06:35 Saline 0.9% IV 130 mls/hr .Q7H42M [facility] Administration Morphine Sulfate 4 mg 03/22/23 22:17 Morphine Sulfate 4 Mg/Ml Syringe IV Q4HR PRN Severe Pain (Scale 7 to 10) Naloxone HCl 0.2 mg 03/22/23 22:09 Naloxone 0.4 Mg/Ml 1 Ml Vial IV Q2M PRN Opioid Reversal Ondansetron HCl 4 mg 03/22/23 22:17 Ondansetron 4 Mg/2 Ml Vial IVP Q8HR PRN Nausea And Vomiting Intake and Output 03/22/23 03/23/23 03/23/23 22:59 06:59 14:59 Intake Total 862.298 Output Total 600 Balance 262.298 Intake: IV 780 Sodium Chloride 0.9% 1, 780 000 ml @ 130 mls/hr IV . Q7H42M [facility] Rx#:[id number] Intake, IV Titration 82.298 Amount Heparin Sod,Pork in 0.45% 82.298 NaCl 25,000 unit In 0.45 % NaCl 1 250ml.bag @ 18 UNITS/KG/HR 14.696 mls/hr IV .Q17H1M [facility] Rx#: [id number] Output: Urine 600 Other: Voiding Method Toilet Weight 81.647 kg 81.647 kg 03/22/23 18:15 03/22/23 18:15
[2023-03-23] MEDS ORDERED: LOSARTAN 25 MG TAB PO SCH (12:00)
[2023-03-23 12:36] VITALS: RESP 18
--- NOTE | 2023-03-23 13:39 | CA ---
Transthoracic Echo Report Name: Twan Maravilla Age: 73 Gender: M : 1950 Exam Date: 03/23/2023 11:55 Exam Location: [facility] Ht (in): 69 Wt (lb): 180 Ordering Physician: Sandy Davis Attending/Referring Phys: [id number], Ryan Button Sewer Hand Dayton Cruz Procedure CPT: Indications: LV function Cardiac Hx: Technical Quality: Fair Contrast 1: Total Dose (mL): Contrast 2: Total Dose (mL): MEASUREMENTS (Male / Female) Normal Values 2D ECHO LV Diastolic Diameter PLAX 4.0 cm 4.2 - 5.9 / 3.9 - 5.3 cm LV Systolic Diameter PLAX 2.6 cm IVS Diastolic Thickness 1.0 cm 0.6 - 1.0 / 0.6 - 0.9 cm LVPW Diastolic Thickness 1.4 cm 0.6 - 1.0 / 0.6 - 0.9 cm LV Relative Wall Thickness 0.6 RV Internal Dim ED PLAX 2.8 cm LV Diastolic Volume MOD BP 47.6 cm??? 67 - 155 / 56 - 104 cm??? LV Systolic Volume MOD BP 22.6 cm??? 22 - 58 / 19 - 49 cm??? LV Ejection Fraction MOD BP 52.5 % >= 55 % LV Cardiac Index MOD BP 1145.0 cm???/min???m??? LV Diastolic Volume MOD 4C 53.1 cm??? LV Systolic Volume MOD 4C 17.2 cm??? LV Ejection Fraction MOD 4C 67.5 % LV Cardiac Index MOD 4C 1642.4 cm???/min???m??? LV Diastolic Length 4C 7.9 cm LV Systolic Length 4C 6.4 cm LV Diastolic Volume MOD 2C 37.0 cm??? LV Systolic Volume MOD 2C 27.9 cm??? LV Ejection Fraction MOD 2C 24.6 % LV Cardiac Index MOD 2C 416.4 cm???/min???m??? LV Diastolic Length 2C 6.7 cm LV Systolic Length 2C 6.0 cm LA Volume 45.5 cm??? 18 - 58 / 22 - 52 cm??? DOPPLER AV Peak Velocity 105.9 cm/s AV Peak Gradient 4.5 mmHg AV Mean Velocity 70.8 cm/s AV Mean Gradient 2.4 mmHg AV Velocity Time Integral 22.8 cm LVOT Peak Velocity 114.1 cm/s LVOT Peak Gradient 5.2 mmHg LVOT Velocity Time Integral 21.6 cm MV Peak Velocity 109.7 cm/s MV Peak Gradient 4.8 mmHg MV Mean Velocity 56.4 cm/s MV Mean Gradient 1.6 mmHg MV Velocity Time Integral 26.0 cm Mitral E Point Velocity 73.4 cm/s Mitral A Point Velocity 105.3 cm/s Mitral E to A Ratio 0.7 MV Deceleration Time 162.5 ms MV E' Velocity 7.8 cm/s Mitral E to MV E' Ratio 9.4 TR Peak Velocity 108.5 cm/s TR Peak Gradient 4.7 mmHg Right Ventricular Systolic Press 9.7 mmHg FINDINGS Left Ventricle Normal LV size and wall thickness. Left ventricular ejection fraction is estimated at 55-60%. Normal left ventricular wall motion. Right Ventricle Normal right ventricular size. Right Atrium Normal right atrial size. Left Atrium Normal left atrial size. Mitral Valve Structurally normal mitral valve.trace to mild mitral regurgitation. Aortic Valve Trileaflet aortic valve. No aortic valve stenosis, or regurgitation. Tricuspid Valve Structurally normal tricuspid valve. Trace TR. Pulmonic Valve Pulmonic valve not well visualized. No pulmonic regurgitation. Pericardium Normal pericardium. Aorta Normal size aortic root CONCLUSIONS 1. Normal ventricle size and systolic function 2. Trace to mild mitral regurgitation Previewed by: Dr. Gaudencio Laguna MD (Electronically Signed) Final Date: 23 March 2023 13:38
--- NOTE | 2023-03-23 14:20 | P.HPIM ---
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 and could not raise his arms and he states he passed out [place] awoke shortly after that in a sweat and vomiting in the office he was transported to [facility] emergency room via ambulance and workup ensued for his syncopal episode Review of Systems Constitutional: Reports fatigue, Reports malaise, Reports sweats Ears, nose, mouth and throat: Reports as per HPI Cardiovascular: Reports as per HPI (this individual vehemently denied chest pain ), Reports syncope Respiratory: Reports as per HPI Gastrointestinal: Reports nausea, Reports vomiting Genitourinary: Reports as per HPI, Reports nocturia Musculoskeletal: Reports muscle weakness Integumentary: Reports as per HPI Neurological: Reports as per HPI Psychiatric: Reports as per HPI Endocrine: Reports as per HPI Hematologic/Lymphatic: Reports as per HPI Allergic/Immunologic: Reports as per HPI Past Medical History Past Medical History: Coronary Artery Disease (CAD), Diabetes Mellitus Additional Past Medical History / Comment(s): Stent placement 2017 History of Any Multi-Drug Resistant Organisms: None Reported Past Surgical History: Heart Catheterization With Stent, Hernia Repair, Orthopedic Surgery Additional Past Surgical History / Comment(s): Stent 2017 Past Anesthesia/Blood Transfusion Reactions: No Reported Reaction Date of Last Stent Placement:: 2016 Past Psychological History: No Psychological Hx Reported Smoking Status: Never smoker Past Alcohol Use History: Rare Past Drug Use History: None Reported Medications and Allergies Home Medications Medication Instructions Recorded Confirmed Type metFORMIN HCL [Glucophage] 1,000 mg PO BID 03/06/17 03/22/23 History Atorvastatin [Lipitor] 80 mg PO HS #30 tab 03/08/17 03/22/23 Rx Gabapentin [Neurontin] 400 mg PO BID@0900,1500 03/22/23 03/22/23 History Gabapentin [Neurontin] 800 mg PO HS 03/22/23 03/22/23 History Insulin Glargine,Hum.rec.anlog 36 units SQ HS 03/22/23 03/22/23 History [Lantus Solostar Pen] Losartan Potassium [Cozaar] 25 mg PO DAILY 03/22/23 03/22/23 History Semaglutide [Ozempic] 2 mg SQ SA 03/22/23 03/22/23 History allopurinoL [Zyloprim] 100 mg PO DAILY 03/22/23 03/22/23 History Allergies Allergy/AdvReac Type Severity Reaction Status Date / Time No Known Allergies Allergy Verified 03/22/23 20:35 Physical Exam Osteopathic Statement: *. No significant issues noted on an osteopathic structural exam other than those noted in the History and Physical/Consult. Vitals: Vital Signs Temp Pulse Pulse Resp BP BP Pulse Ox 03/23/23 12:34 101 H 18 115/103 99 03/23/23 09:43 89 12 133/77 03/23/23 01:08 98.3 F 16 144/80 98 03/22/23 22:00 105 H 15 138/85 97 03/22/23 20:00 105 H 16 135/73 99 03/22/23 19:08 107 H 20 153/84 99 03/22/23 18:10 97.4 F L 89 18 123/67 96 Intake and Output 03/22/23 03/23/23 03/23/23 22:59 06:59 14:59 Intake Total 862.298 69.604 Output Total 600 Balance 262.298 69.604 Intake: IV 780 Sodium Chloride 0.9% 1, 780 000 ml @ 130 mls/hr IV . Q7H42M [facility] Rx#:[id number] Intake, IV Titration 82.298 69.604 Amount Heparin Sod,Pork in 0.45% 82.298 69.604 NaCl 25,000 unit In 0.45 % NaCl 1 250ml.bag @ 18 UNITS/KG/HR 14.696 mls/hr IV .Q17H1M [facility] Rx#: [id number] Output: Urine 600 Other: Voiding Method Toilet Weight 81.647 kg 81.647 kg General: [Patient awake, alert and oriented times 3. Patient in no acute distress. HEENT[PERRL. EOMI. No pharyngeal erythema or exudate. Neck: [No adenopathy.] Cardiac: [Heart regular in rate and rhythm. No S3. No S4. No clicks, rubs. No murmur. Lungs: [Clear to auscultation bilaterally.] Abdomen: [No mass. No organomegaly. Bowel sounds presnt and normoactive in all 4 quadrants. Extremes: [No edema no cyanosis no claudication normal pulses : normal male genitalia Musculoskeletal: [No joint erythema, edema or tenderness. Skin: [No rash. Neurologic: No lateralizing deficits. CN II - XII grossly intact. Lymphatic: No adenopathy. Results CBC & Chem 7: 03/22/23 18:15 03/22/23 18:15 Labs: Abnormal Lab Results - Last 24 Hours (Table) 03/22/23 03/22/23 03/22/23 Range/Units 18:15 18:15 18:15 WBC 12.6 H (3.8-10.6) k/uL RBC 4.29 L (4.30-5.90) m/uL Hgb 12.8 L (13.0-17.5) gm/dL Hct 38.5 L (39.0-53.0) % Neutrophils # 10.1 H (1.3-7.7) k/uL APTT 19.7 L (22.0-30.0) sec D-Dimer 0.91 H (<0.60) mg/L FEU Carbon Dioxide 21 L (22-30) mmol/L BUN 25 H (9-20) mg/dL Creatinine 2.02 H (0.66-1.25) mg/dL Glucose 176 H (74-99) mg/dL POC Glucose (mg/dL) (70-110) mg/dL Plasma Lactic Acid Boni (0.7-2.0) mmol/L Magnesium 1.3 L (1.6-2.3) mg/dL 03/22/23 03/23/23 03/23/23 Range/Units 18:15 01:02 03:36 WBC (3.8-10.6) k/uL RBC (4.30-5.90) m/uL Hgb (13.0-17.5) gm/dL Hct (39.0-53.0) % Neutrophils # (1.3-7.7) k/uL APTT 123.6 H* (22.0-30.0) sec D-Dimer (<0.60) mg/L FEU Carbon Dioxide (22-30) mmol/L BUN (9-20) mg/dL Creatinine (0.66-1.25) mg/dL Glucose (74-99) mg/dL POC Glucose (mg/dL) 154 H (70-110) mg/dL Plasma Lactic Acid Boni 3.3 H* (0.7-2.0) mmol/L Magnesium (1.6-2.3) mg/dL 03/23/23 Range/Units 10:28 WBC (3.8-10.6) k/uL RBC (4.30-5.90) m/uL Hgb (13.0-17.5) gm/dL Hct (39.0-53.0) % Neutrophils # (1.3-7.7) k/uL APTT 42.5 H (22.0-30.0) sec D-Dimer (<0.60) mg/L FEU Carbon Dioxide (22-30) mmol/L BUN (9-20) mg/dL Creatinine (0.66-1.25) mg/dL Glucose (74-99) mg/dL POC Glucose (mg/dL) (70-110) mg/dL Plasma Lactic Acid Boni (0.7-2.0) mmol/L Magnesium (1.6-2.3) mg/dL Assessment and Plan (1) Lactic acidosis due to diabetes mellitus Current Visit: Yes Status: Acute Code(s): E11.10 - TYPE 2 DIABETES MELLITUS WITH KETOACIDOSIS WITHOUT COMA SNOMED Code(s): 592092319 (2) Arrhythmia Current Visit: Yes Status: Acute Code(s): I49.9 - CARDIAC ARRHYTHMIA, UNSPECIFIED SNOMED Code(s): 623964384 (3) Dehydration Current Visit: Yes Status: Acute Code(s): E86.0 - DEHYDRATION SNOMED Code(s): 19471097 (4) S/P right coronary artery (RCA) stent placement Current Visit: Yes Status: Acute Code(s): Z95.5 - PRESENCE OF CORONARY ANGIOPLASTY IMPLANT AND GRAFT SNOMED Code(s): 593102592 (5) Syncope Current Visit: Yes Status: Acute Code(s): R55 - SYNCOPE AND COLLAPSE SNOMED Code(s): 203579877 (6) HTN (hypertension) Current Visit: No Status: Acute Code(s): I10 - ESSENTIAL (PRIMARY) HYPERTENSION SNOMED Code(s): 34440527 (7) Hyperlipemia Current Visit: No Status: Acute Code(s): E78.5 - HYPERLIPIDEMIA, UNSPECIFIED SNOMED Code(s): 29192234 Plan: patient was evaluated in the emergency room as there were no beds in the hospital This patient was evaluated by both myself and Dr. Laguna of cardiology cardiology cleared this patient for discharge with instructions to follow-up as an outpatient At the time of edition this patient had been rehydrated was resting comfortably complained of no symptoms Reviewing all the patients labs with the exception of lactic acidosis there was no evidence of infection Will stop and hold metformin at this time We'll discharge patient home with follow-up in the office later this week Wednesday or Time with Patient: Greater than 30
--- NOTE | 2023-03-23 14:23 | P.DS ---
Providers Date of admission: 03/22/23 22:19 Expected date of discharge: 03/23/23 Attending physician: Efrain Cruz Consults: 03/22/23 22:09 Consult Physician Routine Consulting Provider: Gaudencio Laguna Consult Reason/Comments: syncope Do you want consulting provider notified?: Yes Primary care physician: Efrain Cruz - Discharge Diagnosis(es) (1) Lactic acidosis due to diabetes mellitus Current Visit: Yes Status: Acute (2) Arrhythmia Current Visit: Yes Status: Acute (3) Dehydration Current Visit: Yes Status: Acute (4) S/P right coronary artery (RCA) stent placement patient was evaluated in the emergency room, rehydrated diagnostics studies were performed CT of the chest were performed O evidence of pulmonary embolus Patient never complained of chest pain nor shortness of breath Patient had been rehydrated he stated he felt completely fine when I had actually seen the patient in the emergency room he was sound asleep will discharge patient home with follow-up at the office Current Visit: Yes Status: Acute (5) Syncope Current Visit: Yes Status: Acute (6) HTN (hypertension) Current Visit: No Status: Acute (7) Hyperlipemia Current Visit: No Status: Acute Hospital Course: patient was rehydrated lactic acidosis resolved Will hold metformin and follow patient up as outpatient Patient Condition at Discharge: Fair Plan - Discharge Summary Discharge Rx Participant: Yes New Discharge Prescriptions: No Action metFORMIN HCL [Glucophage] 1,000 mg PO BID Atorvastatin [Lipitor] 80 mg PO HS #30 tab Semaglutide [Ozempic] 2 mg SQ SA Gabapentin [Neurontin] 400 mg PO BID@0900,1500 Insulin Glargine,Hum.rec.anlog [Lantus Solostar Pen] 36 units SQ HS Losartan Potassium [Cozaar] 25 mg PO DAILY Gabapentin [Neurontin] 800 mg PO HS allopurinoL [Zyloprim] 100 mg PO DAILY Discharge Medication List metFORMIN HCL [Glucophage] 1,000 mg PO BID 03/06/17 [History] Atorvastatin [Lipitor] 80 mg PO HS #30 tab 03/08/17 [Rx] Gabapentin [Neurontin] 400 mg PO BID@0900,1500 03/22/23 [History] Gabapentin [Neurontin] 800 mg PO HS 03/22/23 [History] Insulin Glargine,Hum.rec.anlog [Lantus Solostar Pen] 36 units SQ HS 03/22/23 [History] Losartan Potassium [Cozaar] 25 mg PO DAILY 03/22/23 [History] Semaglutide [Ozempic] 2 mg SQ SA 03/22/23 [History] allopurinoL [Zyloprim] 100 mg PO DAILY 03/22/23 [History] Follow up Appointment(s)/Referral(s): Gaudencio Laguna MD [STAFF PHYSICIAN] - 1 Week (please schedule on a Wednesday per patient request ) Efrain Cruz Jr, DO [Primary Care Provider] - 1-2 days
[2023-03-23 16:06] VITALS: BP 133/81; PULSE 91
[2023-03-23] MEDS ORDERED: ATORVASTATIN 80 MG TAB PO SCH (21:00)
[2023-03-24] MEDS ORDERED: ASPIRIN 81 MG PO SCH (09:00)
== END 2023-03-23 16:05 | disposition home or self-care (01) ==
LOC: EC 18:05 → 6NMEDSUR 22:19
PROVIDERS: ADMIT Family Medicine; ATTEND Family Medicine
DX: E86.0 Dehydration (principal); E87.20 Acidosis, unspecified; E11.9 Type 2 diabetes mellitus without complications; D40.10 Neoplasm of uncertain behavior of unspecified testis; Z95.5 Presence of coronary angioplasty implant and graft; R55 Syncope and collapse; I10 Essential (primary) hypertension; E78.5 Hyperlipidemia, unspecified; I25.10 Atherosclerotic heart disease of native coronary artery without angina pectoris; Z98.890 Other specified postprocedural states; Z79.84 Long term (current) use of oral hypoglycemic drugs; Z79.4 Long term (current) use of insulin; Z79.899 Other long term (current) drug therapy
CPT/HCPCS: 96376; 96361 ×2; 96365; 96366; 99291; 36415; 93005; 93306; 85379; 83880; 80053; 83605; 83735; 84100; 84443; 84484 ×2; 85025; 85610; 85730 ×2; 81003; 71046; 78582; G0378 ×2; A9540; A9567; J1644 ×2